=== PATIENT | female | born 1970 | race Caucasian/White ===

== ENCOUNTER → 2020-10-16 | Outpatient (CLI) | payer OTHER ==
[2020-10-16 14:19] VITALS: BP 157/89; PULSE 65; RESP 18; TEMP 98; BMI 41.5
--- NOTE | 2020-10-16 15:31 | P.HPBAR ---
Bariatric H&P - History & Physicial H&P Date: 10/16/20 History & Physicial: Visit/CC: follow up Patient initial contact: Initial weight: Initial weight in pounds: Height: 5 ft 5 in Initial BMI: Last weight: Current weight: 113.217 kg Current weight in pounds: 249.60 Current BMI: 41.5 [place] body weight (based on NIH guidelines): 56.699 kg Excess body weight loss: The patient is a 50 year-old F who presents for Bariatric Assessment. Patient presents today for LAP-BAND follow-up. She is currently hungry and is requesting a fill. Past Medical History Past Medical History: Thyroid Disorder History of Any Multi-Drug Resistant Organisms: None Reported Past Surgical History: Bariatric Surgery, Section Additional Past Surgical History / Comment(s): C SECTION X 4 LAP BAND 2011 Past Anesthesia/Blood Transfusion Reactions: No Reported Reaction Past Psychological History: No Psychological Hx Reported Smoking Status: Never smoker Past Alcohol Use History: None Reported Past Drug Use History: None Reported Surgical - Exam Vital Signs Temp Pulse Resp BP 98 F 65 18 157/89 10/16/20 14:11 10/16/20 14:11 10/16/20 14:11 10/16/20 14:11 - General well developed, well nourished, no distress - Eyes PERRL - ENT normal pinna - Neck no masses - Cardiovascular Rhythm: regular - Abdomen Abdomen: soft, non tender Bariatric Assessment & Plan Plan: A she is LAP-BAND was adjusted. She has 3 mL added to her band. She'll follow- up in 4 weeks Bariatric Checklist Checklist: Plan: Checklist: EGD: 1. Hiatal hernia: 2. H. Pylori: HgbA1c: Vitamin D: Smoking: Primary care physician referral: Dr. Linares Psychiatry clearance: Cardiology clearance: Sleep study: Diet journal: VTE risk score: VTE risk level: Rehab needs at discharge:
== END | disposition home or self-care (01) ==
LOC: BARWHC3 13:11
PROVIDERS: ATTEND Surgery
DX: Z46.51 Encounter for fitting and adjustment of gastric lap band (principal); Z98.84 Bariatric surgery status
CPT/HCPCS: 99212

== ENCOUNTER → 2020-11-13 | Outpatient (CLI) | payer OTHER ==
[2020-11-13 14:47] VITALS: BP 115/74; PULSE 78; RESP 20; TEMP 98.2; BMI 41.4
--- NOTE | 2020-11-14 10:49 | P.HPBAR ---
Bariatric H&P - History & Physicial H&P Date: 11/13/20 History & Physicial: Visit/CC: follow up / lap band adjustment Patient initial contact: Initial weight: Initial weight in pounds: Height: 5 ft 5 in Initial BMI: Last weight: Current weight: 112.945 kg Current weight in pounds: 249.00 Current BMI: 41.4 [place] body weight (based on NIH guidelines): 56.699 kg Excess body weight loss: The patient is a 50 year-old F who presents for Bariatric Assessment. Patient presents today for LAP-BAND adjustment. She is requesting a fill. Past Medical History Past Medical History: Thyroid Disorder History of Any Multi-Drug Resistant Organisms: None Reported Past Surgical History: Bariatric Surgery, Section Additional Past Surgical History / Comment(s): C SECTION X 4 LAP BAND 2012 Past Anesthesia/Blood Transfusion Reactions: No Reported Reaction Past Psychological History: No Psychological Hx Reported Smoking Status: Never smoker Past Alcohol Use History: None Reported Past Drug Use History: None Reported Surgical - Exam Vital Signs Temp Pulse Resp BP 98.2 F 78 20 115/74 11/13/20 14:37 11/13/20 14:37 11/13/20 14:37 11/13/20 14:37 - General well developed, well nourished, no distress - Eyes PERRL - ENT normal pinna - Neck no masses - Respiratory normal expansion - Cardiovascular Rhythm: regular - Abdomen Abdomen: soft, non tender Bariatric Assessment & Plan Plan: Patient's lap band adjusted. She had 1 mL added to the band. She currently has 4 mL in the band. She'll follow-up in 4 weeks. Bariatric Checklist Checklist: Plan: Checklist: EGD: 1. Hiatal hernia: 2. H. Pylori: HgbA1c: Vitamin D: Smoking: Primary care physician referral: Dr. Linares Psychiatry clearance: Cardiology clearance: Sleep study: Diet journal: VTE risk score: VTE risk level: Rehab needs at discharge:
== END | disposition home or self-care (01) ==
LOC: BARWHC3 13:51
PROVIDERS: ATTEND Surgery
DX: Z46.51 Encounter for fitting and adjustment of gastric lap band (principal); Z98.84 Bariatric surgery status
CPT/HCPCS: 99212

== ENCOUNTER → 2020-12-18 | Outpatient (CLI) | payer OTHER ==
[2020-12-18 13:36] VITALS: BP 132/82; PULSE 78; RESP 16; TEMP 98.1; BMI 41.2
--- NOTE | 2021-01-01 11:39 | P.HPBAR ---
Bariatric H&P - History & Physicial H&P Date: 12/18/20 History & Physicial: Visit/CC: band f/u Patient initial contact: Initial weight: 113.115 kg Initial weight in pounds: 249.38 Height: 5 ft 5 in Initial BMI: 41.5 Last weight: Current weight: 112.491 kg Current weight in pounds: 248.00 Current BMI: 41.2 [place] body weight (based on NIH guidelines): 56.699 kg Excess body weight loss: 1.1% The patient is a 50 year-old F who presents for Bariatric Assessment. Patient presents today for lab band follow up. She is requesting a fill of her band. She currently feels hungry. Past Medical History Past Medical History: Thyroid Disorder History of Any Multi-Drug Resistant Organisms: None Reported Past Surgical History: Bariatric Surgery, Section Additional Past Surgical History / Comment(s): C SECTION X 4 LAP BAND 2011 Past Anesthesia/Blood Transfusion Reactions: No Reported Reaction Smoking Status: Never smoker Surgical - Exam Vital Signs Temp Pulse Resp BP 98.1 F 78 16 132/82 12/18/20 13:33 12/18/20 13:33 12/18/20 13:33 12/18/20 13:33 - General well developed, well nourished, no distress - Eyes PERRL - ENT normal pinna - Neck no masses - Respiratory normal expansion - Cardiovascular Rhythm: regular - Abdomen Abdomen: soft, non tender Bariatric Assessment & Plan Plan: Patient's lap band adjusted. She had 1 mL added to the band. She currently has 5 mL in the band. She'll follow-up in 4 weeks. Bariatric Checklist Checklist: Plan: Checklist: EGD: 1. Hiatal hernia: 2. H. Pylori: HgbA1c: Vitamin D: Smoking: Primary care physician referral: Dr. Linares Psychiatry clearance: Cardiology clearance: Sleep study: Diet journal: VTE risk score: VTE risk level: Rehab needs at discharge:
== END | disposition home or self-care (01) ==
LOC: BARWHC3 13:25
PROVIDERS: ATTEND Surgery
DX: Z46.51 Encounter for fitting and adjustment of gastric lap band (principal)
CPT/HCPCS: 99212

== ENCOUNTER → 2021-01-15 | Outpatient (CLI) | payer OTHER ==
[2021-01-15 14:33] VITALS: BP 139/76; PULSE 69; RESP 18; TEMP 98.6; BMI 41.5
--- NOTE | 2021-01-22 15:42 | P.HPBAR ---
Bariatric H&P - History & Physicial H&P Date: 01/15/21 History & Physicial: Visit/CC: follow up / lap band Patient initial contact: Initial weight: 113.115 kg Initial weight in pounds: 249.38 Height: 5 ft 5 in Initial BMI: 41.5 Last weight: Current weight: 113.398 kg Current weight in pounds: 250.00 Current BMI: 41.5 [place] body weight (based on NIH guidelines): 56.699 kg Excess body weight loss: The patient is a 50 year-old F who presents for Bariatric Assessment. Patient resents today for LAP-BAND adjustment and she is requesting a fill. Past Medical History Past Medical History: Thyroid Disorder History of Any Multi-Drug Resistant Organisms: None Reported Past Surgical History: Bariatric Surgery, Section Additional Past Surgical History / Comment(s): C SECTION X 4 LAP BAND 2011 Past Anesthesia/Blood Transfusion Reactions: No Reported Reaction Past Psychological History: No Psychological Hx Reported Smoking Status: Never smoker Past Alcohol Use History: None Reported Past Drug Use History: None Reported Surgical - Exam Vital Signs Temp Pulse Resp BP 98.6 F 69 18 139/76 01/15/21 14:29 01/15/21 14:29 01/15/21 14:29 01/15/21 14:29 - General well developed, well nourished, no distress - Eyes PERRL - ENT normal pinna - Neck no masses - Respiratory normal expansion - Cardiovascular Rhythm: regular - Abdomen Abdomen: soft, non tender Bariatric Assessment & Plan Plan: Patient LAP-BAND was adjusted she had 1 mL added to the band. She'll follow-up in 4 weeks. Bariatric Checklist Checklist: Plan: Checklist: EGD: 1. Hiatal hernia: 2. H. Pylori: HgbA1c: Vitamin D: Smoking: Primary care physician referral: Dr. Linares Psychiatry clearance: Cardiology clearance: Sleep study: Diet journal: VTE risk score: VTE risk level: Rehab needs at discharge:
== END ==
LOC: BARWHC3 13:02
PROVIDERS: ATTEND Surgery
DX: Z98.84 Bariatric surgery status (principal); Z46.51 Encounter for fitting and adjustment of gastric lap band; E03.9 Hypothyroidism, unspecified
CPT/HCPCS: 99212

== ENCOUNTER → 2021-02-19 | Outpatient (CLI) | payer OTHER ==
[2021-02-19 13:06] VITALS: BP 142/85; PULSE 75; RESP 18; TEMP 97.6; BMI 40.8
--- NOTE | 2021-02-19 13:40 | P.HPBAR ---
Bariatric H&P - History & Physicial H&P Date: 02/19/21 History & Physicial: Visit/CC: lap band follow up Patient initial contact: Initial weight: 113.115 kg Initial weight in pounds: 249.38 Height: 5 ft 5 in Initial BMI: 41.5 Last weight: Current weight: 111.402 kg Current weight in pounds: 245.60 Current BMI: 40.8 [place] body weight (based on NIH guidelines): 56.699 kg Excess body weight loss: 3.0% The patient is a 50 year-old F who presents for Bariatric Assessment. She presents today for lab band follow up. She fill of her LAP-BAND. Requesting a fill of her LAP-BAND Past Medical History Past Medical History: Thyroid Disorder History of Any Multi-Drug Resistant Organisms: None Reported Past Surgical History: Bariatric Surgery, Section Additional Past Surgical History / Comment(s): C SECTION X 4 LAP BAND 2011 Past Anesthesia/Blood Transfusion Reactions: No Reported Reaction Past Psychological History: No Psychological Hx Reported Smoking Status: Never smoker Past Alcohol Use History: None Reported Past Drug Use History: None Reported Surgical - Exam Vital Signs Temp Pulse Resp BP 97.6 F 75 18 142/85 02/19/21 13:03 02/19/21 13:03 02/19/21 13:03 02/19/21 13:03 - General well developed, well nourished, no distress - Eyes PERRL - ENT normal pinna - Neck no masses - Respiratory normal expansion - Cardiovascular Rhythm: regular - Abdomen Abdomen: soft, non tender Bariatric Assessment & Plan Plan: Patient's lap band was adjusted. She had 0.5 mL added to her band. She currently has 6.5 mL in the band. Bariatric Checklist Checklist: Plan: Checklist: EGD: 1. Hiatal hernia: 2. H. Pylori: HgbA1c: Vitamin D: Smoking: Primary care physician referral: Dr. Linares Psychiatry clearance: Cardiology clearance: Sleep study: Diet journal: VTE risk score: VTE risk level: Rehab needs at discharge:
== END ==
LOC: BARWHC3 12:41
PROVIDERS: ATTEND Surgery
DX: E66.01 Morbid (severe) obesity due to excess calories (principal); Z68.41 Body mass index [BMI] 40.0-44.9, adult; Z98.84 Bariatric surgery status; Z46.51 Encounter for fitting and adjustment of gastric lap band
CPT/HCPCS: 99212

== ENCOUNTER → 2021-03-26 | Outpatient (CLI) | payer OTHER ==
[2021-03-26 14:19] VITALS: BP 135/85; PULSE 71; RESP 18; TEMP 98.6; BMI 40.1
--- NOTE | 2021-03-26 15:39 | P.HPBAR ---
Bariatric H&P - History & Physicial H&P Date: 03/26/21 History & Physicial: Visit/CC: lap band follow up Patient initial contact: Initial weight: 113.115 kg Initial weight in pounds: 249.38 Height: 5 ft 5 in Initial BMI: 41.5 Last weight: Current weight: 109.316 kg Current weight in pounds: 241.00 Current BMI: 40.1 [place] body weight (based on NIH guidelines): 56.699 kg Excess body weight loss: 6.7% The patient is a 51 year-old F who presents for Bariatric Assessment. Patient presents today for laparoscopic band fill. She is requesting a fill. She currently feels hungry. Past Medical History Past Medical History: Thyroid Disorder History of Any Multi-Drug Resistant Organisms: None Reported Past Surgical History: Bariatric Surgery, Section Additional Past Surgical History / Comment(s): C SECTION X 4 LAP BAND 2011 Past Anesthesia/Blood Transfusion Reactions: No Reported Reaction Past Psychological History: No Psychological Hx Reported Smoking Status: Never smoker Past Alcohol Use History: None Reported Past Drug Use History: None Reported Surgical - Exam Vital Signs Temp Pulse Resp BP 98.6 F 71 18 135/85 03/26/21 14:15 03/26/21 14:15 03/26/21 14:15 03/26/21 14:15 - General well developed, well nourished, no distress - Eyes PERRL - ENT normal pinna - Neck no masses - Respiratory normal expansion - Abdomen Abdomen: soft, non tender Bariatric Assessment & Plan Plan: Patient's LAP-BAND was just. She had 0.5 mL added to the band. She will follow-up in one month. Bariatric Checklist Checklist: Plan: Checklist: EGD: 1. Hiatal hernia: 2. H. Pylori: HgbA1c: Vitamin D: Smoking: Primary care physician referral: Dr. Linares Psychiatry clearance: Cardiology clearance: Sleep study: Diet journal: VTE risk score: VTE risk level: Rehab needs at discharge:
== END ==
LOC: BARWHC3 13:57
PROVIDERS: ATTEND Surgery
DX: Z46.51 Encounter for fitting and adjustment of gastric lap band (principal); Z98.84 Bariatric surgery status
CPT/HCPCS: 99212

== ENCOUNTER → 2021-05-14 | Outpatient (CLI) | payer OTHER ==
[2021-05-14 13:09] VITALS: BP 126/85; PULSE 64; RESP 18; TEMP 97.9; BMI 38.6
--- NOTE | 2021-05-14 16:32 | P.HPBAR ---
Bariatric H&P - History & Physicial H&P Date: 05/14/21 History & Physicial: Visit/CC: follow up / lap band Patient initial contact: Initial weight: 113.115 kg Initial weight in pounds: 249.38 Height: 5 ft 5 in Initial BMI: 41.5 Last weight: Current weight: 105.233 kg Current weight in pounds: 232.00 Current BMI: 38.6 [place] body weight (based on NIH guidelines): 56.699 kg Excess body weight loss: 13.9% The patient is a 51 year-old F who presents for Bariatric Assessment. She prese nts today for her LAP-BAND follow-up. She's had excellent weight loss. Patient states that she is in a good zone. She has complaints of some minimal GERD. Past Medical History Past Medical History: Thyroid Disorder History of Any Multi-Drug Resistant Organisms: None Reported Past Surgical History: Bariatric Surgery, Section Additional Past Surgical History / Comment(s): C SECTION X 4 LAP BAND 2011 Past Anesthesia/Blood Transfusion Reactions: No Reported Reaction Past Psychological History: No Psychological Hx Reported Smoking Status: Never smoker Past Alcohol Use History: None Reported Past Drug Use History: None Reported Surgical - Exam Vital Signs Temp Pulse Resp BP 97.9 F 64 18 126/85 05/14/21 13:04 05/14/21 13:04 05/14/21 13:04 05/14/21 13:04 - General well developed, well nourished, no distress - Eyes PERRL - ENT normal pinna - Neck no masses - Respiratory normal expansion - Cardiovascular Rhythm: regular - Abdomen Abdomen: soft, non tender Bariatric Assessment & Plan Plan: Patient's lap band was not adjusted. She will be observed. She'll follow-up in 4 weeks. Her GERD is minimal and will be observed. Bariatric Checklist Checklist: Plan: Checklist: EGD: 1. Hiatal hernia: 2. H. Pylori: HgbA1c: Vitamin D: Smoking: Primary care physician referral: Dr. Linares Psychiatry clearance: Cardiology clearance: Sleep study: Diet journal: VTE risk score: VTE risk level: Rehab needs at discharge:
== END ==
LOC: BARWHC3 12:44
PROVIDERS: ATTEND Surgery
DX: Z09 Encounter for follow-up examination after completed treatment for conditions other than malignant neoplasm (principal); K21.9 Gastro-esophageal reflux disease without esophagitis; Z98.84 Bariatric surgery status
CPT/HCPCS: 99211

== ENCOUNTER → 2021-06-18 | Outpatient (CLI) | payer OTHER ==
[2021-06-18 13:17] VITALS: BP 134/85; PULSE 84; TEMP 97.4; BMI 37.9
--- NOTE | 2021-06-18 15:42 | P.HPBAR ---
Bariatric H&P - History & Physicial H&P Date: 06/18/21 History & Physicial: Visit/CC: lap band follow up Patient initial contact: Initial weight: 113.115 kg Initial weight in pounds: 249.38 Height: 5 ft 5 in Initial BMI: 41.5 Last weight: Current weight: 103.419 kg Current weight in pounds: 228.00 Current BMI: 37.9 [place] body weight (based on NIH guidelines): 56.699 kg Excess body weight loss: 17.1% The patient is a 51 year-old F who presents for Bariatric Assessment. Patient rents today for LAP-BAND adjustment. She's had some complaints of GERD. Past Medical History Past Medical History: Thyroid Disorder History of Any Multi-Drug Resistant Organisms: None Reported Past Surgical History: Bariatric Surgery, Section Additional Past Surgical History / Comment(s): C SECTION X 4 LAP BAND 2011 Past Anesthesia/Blood Transfusion Reactions: No Reported Reaction Past Psychological History: No Psychological Hx Reported Smoking Status: Never smoker Past Alcohol Use History: None Reported Past Drug Use History: None Reported Surgical - Exam Vital Signs Temp Pulse BP 97.4 F L 84 134/85 06/18/21 13:16 06/18/21 13:16 06/18/21 13:16 - General well developed, well nourished, no distress - Eyes PERRL - ENT normal pinna - Neck no masses - Respiratory normal expansion - Cardiovascular Rhythm: regular - Abdomen Abdomen: soft, non tender Bariatric Assessment & Plan Plan: Patient's lap was just. She had 1 mL removed from the band. She will follow-up in 4 weeks. Bariatric Checklist Checklist: Plan: Checklist: EGD: 1. Hiatal hernia: 2. H. Pylori: HgbA1c: Vitamin D: Smoking: Primary care physician referral: Dr. Linares Psychiatry clearance: Cardiology clearance: Sleep study: Diet journal: VTE risk score: VTE risk level: Rehab needs at discharge:
== END ==
LOC: BARWHC3 12:42
PROVIDERS: ATTEND Surgery
DX: Z46.51 Encounter for fitting and adjustment of gastric lap band (principal); K21.9 Gastro-esophageal reflux disease without esophagitis
CPT/HCPCS: 99212

== ENCOUNTER 2021-06-21 10:17 | Observation (INO) | payer OTHER ==
--- NOTE | 2021-06-21 10:48 | ED ---
Chest Pain HPI - General Source: patient, RN notes reviewed Mode of arrival: wheelchair Limitations: no limitations <Howard Ochoa - Last Filed: 06/21/21 12:44> <Rowan Radford - Last Filed: 06/22/21 00:09> - General Chief Complaint: Chest Pain Stated Complaint: chest pain Time Seen by Provider: 06/21/21 10:36 - History of Present Illness Initial Comments: This a 51-year-old female presents emergency Department with chief complaint of chest pain. Patient states she had very intense episode approximately hour prior arrival. She states this started resolve but returned again. Currently she is asymptomatic. Patient states she felt very tired, weak and does not feel well during this event. Patient states that she's been having some issues in which she is scheduled for upper or lower scope. Patient denies any rectal bleeding, hematemesis no, nausea vomiting currently. No headache. (Howard Ochoa) - Related Data Home Medications Medication Instructions Recorded Confirmed FLUoxetine HCL [PROzac] 40 mg PO DAILY 10/16/20 06/21/21 Albuterol Sulfate [Ventolin HFA] 1 - 2 puff INHALATION RT-Q6H PRN 06/21/21 06/21/21 Levothyroxine Sodium [Synthroid] 100 mcg PO DAILY 06/21/21 06/21/21 Liothyronine Sodium [Cytomel] 5 mcg PO DAILY 06/21/21 06/21/21 Oxybutynin Chloride [Oxybutynin 10 mg PO DAILY 06/21/21 06/21/21 Chloride ER] Allergies Allergy/AdvReac Type Severity Reaction Status Date / Time No Known Allergies Allergy Verified 06/21/21 12:06 Review of Systems ROS Other: All systems not noted in ROS Statement are negative. <Howard Ochoa - Last Filed: 06/21/21 12:44> ROS Other: All systems not noted in ROS Statement are negative. <Rowan Radford - Last Filed: 06/22/21 00:09> ROS Statement: Those systems with pertinent positive or pertinent negative responses have been documented in the HPI. EKG Findings - EKG Comments: EKG Findings:: EKG performed at 10:33 sinus bradycardia rate of 58 [place] 132 QRS 82 QT/QTC 440/431 <Howard Ochoa - Last Filed: 06/21/21 12:44> Past Medical History Past Medical History: Thyroid Disorder History of Any Multi-Drug Resistant Organisms: None Reported Past Surgical History: Bariatric Surgery, Section Additional Past Surgical History / Comment(s): C SECTION X 4 LAP BAND 2012 Past Anesthesia/Blood Transfusion Reactions: No Reported Reaction Past Psychological History: No Psychological Hx Reported Smoking Status: Never smoker Past Alcohol Use History: Occasional Past Drug Use History: None Reported <Howard Ochoa - Last Filed: 06/21/21 12:44> General Exam Limitations: no limitations General appearance: alert, in no apparent distress Head exam: Present: atraumatic, normocephalic, normal inspection Eye exam: Present: normal appearance, PERRL, EOMI. Absent: scleral icterus, conjunctival injection, periorbital swelling ENT exam: Present: normal exam, normal oropharynx, mucous membranes moist Neck exam: Present: normal inspection. Absent: tenderness, meningismus, lymphadenopathy Respiratory exam: Present: normal lung sounds bilaterally. Absent: respiratory distress, wheezes, rales, rhonchi, stridor Cardiovascular Exam: Present: regular rate, normal rhythm, normal heart sounds. Absent: systolic murmur, diastolic murmur, rubs, gallop, clicks GI/Abdominal exam: Present: soft, normal bowel sounds. Absent: distended, tenderness, guarding, rebound, rigid Neurological exam: Present: alert Skin exam: Present: warm, dry, intact, normal color. Absent: rash <Howard Ochoa - Last Filed: 06/21/21 12:44> Course Vital Signs 06/21/21 06/21/21 06/21/21 10:20 11:38 17:43 Temperature 97.7 F Pulse Rate 61 58 L 60 Respiratory 18 16 18 Rate Blood Pressure 123/84 146/80 144/96 O2 Sat by Pulse 98 98 97 Oximetry 06/21/21 22:53 Temperature Pulse Rate 72 Respiratory 18 Rate Blood Pressure 131/75 O2 Sat by Pulse 98 Oximetry Chest Pain MDM <Howard Ochoa - Last Filed: 06/21/21 12:44> <Rowan Radford - Last Filed: 06/22/21 00:09> - MDM 51-year-old female presents emergency Department with chest pain. Initial workup is negative though symptoms started just prior arrival. I do recommend patient be admitted for further work duration. Patient refused aspirin as she is scheduled for EGD. Patient refuses admission she states she has no pain. I did have a long conversation regarding her symptoms concern for cardiac and the risk of leaving. Patient exited the risk and states that she'll just return if symptoms come back. (Howard Ochoa) I was available for consultation in the emergency department. The history and physical exam were done by the midlevel provider. I was consulted for this patients care. I reviewed the case with the midlevel provider and based on their presentation of the patient, I agree with the assessment, medical decision making and plan of care as documented. Patient originally planned on leaving however changed her mind and agreed to stay - Dr. Quan is admitting physician Chart was dictated using [employer] dictation software. Attempts were made to correct any dictation errors however some typographical errors may persist. Patient was seen during a national state of emergency due to the Covid-19 pandemic. (Rowan Radford) Disposition Is patient prescribed a controlled substance at d/c from ED?: No Time of Disposition: 12:45 <Howard Ochoa - Last Filed: 06/21/21 12:44> <Rowan Radford - Last Filed: 06/22/21 00:09> Clinical Impression: Chest pain Disposition: ADMITTED IP TO THIS HOSP Condition: Fair
--- NOTE | 2021-06-21 11:08 | XR ---
EXAMINATION TYPE: XR chest 2V DATE OF EXAM: 06/21/2021 COMPARISON: NONE TECHNIQUE: PA and lateral views submitted. HISTORY: Chest pain FINDINGS: The lungs are clear and there is no pneumothorax, pleural effusion, or focal pneumonia. Heart size normal with no overt failure. Arthropathy of the shoulders. Hypertrophic and degenerative changes spi ne. A catheter overlying the upper abdomen. IMPRESSION: 1. No acute process.
[2021-06-21 11:48] LABS: Basophils % (A) 1 %; Eosinophils # (A) 0.1 k/uL (0-0.7); Eosinophils % (A) 2 %; HCT 42.6 % (34.0-46.0); Lymphocytes # (A) 1.1 k/uL (1.0-4.8); Lymphocytes % (A) 18 %; MCH 30.8 pg (25.0-35.0); MCHC 32.9 g/dL (31.0-37.0); MCV 93.8 fL (80.0-100.0); Mean Platelet Volume 9.6; Monocytes # (A) 0.5 k/uL (0-1.0); Monocytes % (A) 8 %; Neutrophils # (A) 4.4 k/uL (1.3-7.7); Neutrophils % (A) 71 %; Platelet Count 243 k/uL (150-450); RBC 4.54 m/uL (3.80-5.40); RDW 13.8 % (11.5-15.5); WBC 6.2 k/uL (3.8-10.6)
[2021-06-21 11:59] LABS: ALT 24 U/L (4-34); AST 32 U/L (14-36); African American GFR (CKD) >90 (>60 ml/min/1.73 sqM); Albumin 4.4 g/dL (3.5-5.0); Alkaline Phosphatase 75 U/L (38-126); Anion Gap 9 mmol/L; Blood Urea Nitrogen 10 mg/dL (7-17); Calcium 9.5 mg/dL (8.4-10.2); Carbon Dioxide 28 mmol/L (22-30); Chloride 99 mmol/L (98-107); Glucose 92 mg/dL (74-99); Lipase 84 U/L (23-300); Magnesium 1.9 mg/dL (1.6-2.3); Non-African American GFR(CKD) >90 (>60 ml/min/1.73 sqM); Potassium 4.6 mmol/L (3.5-5.1); Sodium 136 mmol/L (137-145); Total Bilirubin 0.6 mg/dL (0.2-1.3); Total Protein 7.2 g/dL (6.3-8.2)
[2021-06-21 12:11] LABS: INR 0.9 (<1.2); Partial Thromboplastin Time 24.2 sec (22.0-30.0); Prothrombin Time 9.9 sec (9.0-12.0)
[2021-06-21] MEDS ORDERED: NITROGLYCERIN SL TABS 0.4 MG TAB SUBLINGUAL PRN (12:49)
[2021-06-21] MEDS ORDERED: ALBUTEROL NEBULIZED 2.5 MG/3 ML INHALATION PRN (16:48)
--- NOTE | 2021-06-21 16:50 | P.HPIM ---
History of Present Illness H&P Date: 06/21/21 Chief Complaint: Chest pain This is a 51-year-old pleasant female, patient of Dr. Queen. She is otherwise healthy, except for hypothyroidism and LAP-BAND, in 2011 however comes in with significant sudden onset chest discomfort, midsternal, very intense, approximately 1 hour prior to admission. Patient has no similar episodes the past, and no known history of CAD. However there is significant family history of CAD, patient's concern. Patient felt tired and weak, does not feel well, there is no diaphoresis, no fever no chills no cough. No sick contacts, patient completed 2 doses of cold vaccination, from December 2020. Apparently she also has gallstones, for which no plans for gallbladder to be taken out, but she is to undergo an EGD, and colonoscopy by Dr. cisneros, as she does have an abnormal CAT scan that shows widening of the esophagus, and narrowing of the GE junction. This is going to be done this coming June 25. Patient has sore throat, chest pressure, difficulty breathing, patient incidentally has covid infection November 2020 In the mentioned, patient's chest pain free, troponins are negative, 1, double basic count of 6.2, INR of 0.9. Lipase 84 EKG shows sinus bradycardia, LVH, heart rate 58, no acute ST-T wave changes chest x-ray, no acute process. Past hypertrophic degenerative changes of the spine, patient's admitted for 23 hour observe, to have echocardiogram, serial troponins, consult with cardiology. Lipid panel; nitro when necessary, exam today once in the emergency room, clinically she does not have any acute cholecystitis-like symptoms, negative for Guerrier sign Review of Systems Constitutional: Reports as per HPI Ears, nose, mouth and throat: Reports as per HPI Cardiovascular: Reports as per HPI, Reports chest pain, Denies claudication, Denies dyspnea on exertion, Denies edema, Denies high blood pressure, Denies irregular heart beat, Denies orthopnea Gastrointestinal: Reports abdominal pain, Reports loss of appetite, Denies as per HPI, Denies coffee ground emesis, Denies constipation, Denies excessive gas, Denies heartburn, Denies hematochezia, Denies nausea, Denies vomiting Genitourinary: Reports as per HPI, Reports urge incontinence, Denies abnormal vaginal bleeding, Denies dysuria, Denies hematuria Menstruation: Reports as per HPI, Denies amenorrhea, Denies amenorrhea on BC, Denies currently menstrual, Denies cycle < 21 days, Denies cycle > 35 days, Denies cycle variable, Denies menses 1-7 days, Denies menses 8 or > days, Denies menses variable, Denies period heavy, Denies period light, Denies period normal, Denies period spotting, Denies post hysterectomy, Denies postmenopausal, Denies premenarcheal Musculoskeletal: Reports as per HPI, Denies arm numbness/tingling, Denies atrophy, Denies fractures, Denies frequent falls, Denies gait dysfunction, Denies hot joints, Denies leg numbness/tingling, Denies limitation of motion, Denies loss of height, Denies low back pain, Denies morning stiffness, Denies muscle cramps, Denies muscle weakness, Denies myalgias, Denies neck pain, Denies neck stiffness, Denies prior amputations, Denies redness of joints, Denies shooting arm pain, Denies shooting leg pain Integumentary: Reports as per HPI, Denies acne, Denies boils, Denies brittle nails, Denies change in hair/nails, Denies color changes, Denies darkening of skin, Denies depigmentation, Denies dryness, Denies foot/leg ulcers, Denies growths, Denies hirsutism, Denies lesions, Denies onychomycosis, Denies pruritus, Denies rash, Denies sores, Denies striae, Denies unusual bruising, Denies wounds Neurological: Reports as per HPI, Reports weakness, Denies aphasia, Denies ataxia, Denies balance difficulties, Denies burning pain, Denies change in mentation, Denies change in smell/taste, Denies change in speech, Denies confusion, Denies convulsions, Denies double vision, Denies gait dysfunction, Denies head injury, Denies headaches, Denies hearing difficulties, Denies lack of coordination, Denies loss of vision, Denies memory loss, Denies migraines, Denies motor disturbance, Denies numbness, Denies paralysis, Denies paresthesias, Denies seizures, Denies sensory deficit, Denies spasticity, Denies syncope, Denies tic, Denies tingling, Denies transient paralysis, Denies tremors, Denies vertigo, Denies visual changes Psychiatric: Reports as per HPI, Denies anhedonia, Denies anxiety, Denies anxiety attacks, Denies change in appetite, Denies change in libido, Denies change in sleep habits, Denies confusion, Denies depression, Denies difficulty concentrating, Denies disorientation, Denies hallucinations, Denies hopelessness, Denies hypersomnia, Denies insomnia, Denies irritability, Denies memory loss, Denies mood swings, Denies paranoia, Denies sadness/tearfulness, Denies sleep disturbances, Denies suicidal ideation Endocrine: Reports as per HPI, Reports fatigue Hematologic/Lymphatic: Reports as per HPI Allergic/Immunologic: Reports as per HPI, Denies allergic rhinitis, Denies anaphylaxis, Denies angioedema, Denies gluten intolerance, Denies persistent infections, Denies seasonal allergies, Denies urticaria, Denies wheezing Past Medical History Past Medical History: Thyroid Disorder Additional Past Medical History / Comment(s): Covid November 2020 History of Any Multi-Drug Resistant Organisms: None Reported Past Surgical History: Bariatric Surgery, Section Additional Past Surgical History / Comment(s): C SECTION X 4 LAP BAND 2011 Past Anesthesia/Blood Transfusion Reactions: No Reported Reaction Past Psychological History: No Psychological Hx Reported Smoking Status: Never smoker Past Alcohol Use History: Occasional Past Drug Use History: None Reported - Past Family History Father Family Medical History: Cancer (Prostate and lung) Mother Family Medical History: Coronary Artery Disease (CAD) Brother(s) Family Medical History: Diabetes Mellitus Sister(s) Family Medical History: Diabetes Mellitus Daughter(s) History Unknown: Yes (JRA) Medications and Allergies Home Medications Medication Instructions Recorded Confirmed Type FLUoxetine HCL [PROzac] 40 mg PO DAILY 10/16/20 06/21/21 History Albuterol Sulfate [Ventolin HFA] 1 - 2 puff INHALATION RT-Q6H PRN 06/21/21 06/21/21 History Levothyroxine Sodium [Synthroid] 100 mcg PO DAILY 06/21/21 06/21/21 History Liothyronine Sodium [Cytomel] 5 mcg PO DAILY 06/21/21 06/21/21 History Oxybutynin Chloride [Oxybutynin 10 mg PO DAILY 06/21/21 06/21/21 History Chloride ER] Allergies Allergy/AdvReac Type Severity Reaction Status Date / Time No Known Allergies Allergy Verified 06/21/21 12:06 Physical Exam Vitals: Vital Signs Temp Pulse Resp BP Pulse Ox 06/21/21 11:38 58 L 16 146/80 98 06/21/21 10:20 97.7 F 61 18 123/84 98 Intake and Output 06/21/21 06/21/21 06/21/21 06:59 14:59 22:59 Other: Weight 102.058 kg - Constitutional General appearance: cooperative, no acute distress, obese - EENT Eyes: EOMI, PERRLA, dentition normal ENT: NA/AT - Neck Thyroid: bilateral: normal size, negative: enlarged - Respiratory Respiratory: bilateral: CTA, negative: diminished, dullness, rales - Cardiovascular Rhythm: regular Heart sounds: normal: S1, S2 Abnormal Heart Sounds: no systolic murmur, no diastolic murmur, no rub, no S3 Gallop, no S4 Gallop, no click, no other - Gastrointestinal General gastrointestinal: normal bowel sounds, soft - Integumentary Integumentary: decreased turgor, normal - Neurologic Neurologic: CNII-XII intact - Musculoskeletal Musculoskeletal: gait normal, strength equal bilaterally - Psychiatric Psychiatric: A&O x's 3, appropriate affect, intact judgment & insight Results CBC & Chem 7: 06/21/21 10:51 06/21/21 10:51 Labs: Abnormal Lab Results - Last 24 Hours (Table) 06/21/21 Range/Units 10:51 Sodium 136 L (137-145) mmol/L Laboratory Results WBC 6.2 k/uL (3.8-10.6) 06/21/21 10:51 RBC 4.54 m/uL (3.80-5.40) 06/21/21 10:51 Hgb 14.0 gm/dL (11.4-16.0) 06/21/21 10:51 Hct 42.6 % (34.0-46.0) 06/21/21 10:51 MCV 93.8 fL (80.0-100.0) 06/21/21 10:51 MCH 30.8 pg (25.0-35.0) 06/21/21 10:51 MCHC 32.9 g/dL (31.0-37.0) 06/21/21 10:51 RDW 13.8 % (11.5-15.5) 06/21/21 10:51 Plt Count 243 k/uL (150-450) 06/21/21 10:51 MPV 9.6 06/21/21 10:51 Neutrophils % 71 % 06/21/21 10:51 Lymphocytes % 18 % 06/21/21 10:51 Monocytes % 8 % 06/21/21 10:51 Eosinophils % 2 % 06/21/21 10:51 Basophils % 1 % 06/21/21 10:51 Neutrophils # 4.4 k/uL (1.3-7.7) 06/21/21 10:51 Lymphocytes # 1.1 k/uL (1.0-4.8) 06/21/21 10:51 Monocytes # 0.5 k/uL (0-1.0) 06/21/21 10:51 Eosinophils # 0.1 k/uL (0-0.7) 06/21/21 10:51 Basophils # 0.0 k/uL (0-0.2) 06/21/21 10:51 PT 9.9 sec (9.0-12.0) 06/21/21 10:51 INR 0.9 (<1.2) 06/21/21 10:51 APTT 24.2 sec (22.0-30.0) 06/21/21 10:51 Sodium 136 mmol/L (137-145) L 06/21/21 10:51 Potassium 4.6 mmol/L (3.5-5.1) 06/21/21 10:51 Chloride 99 mmol/L (98-107) 06/21/21 10:51 Carbon Dioxide 28 mmol/L (22-30) 06/21/21 10:51 Anion Gap 9 mmol/L 06/21/21 10:51 BUN 10 mg/dL (7-17) 06/21/21 10:51 Creatinine 0.63 mg/dL (0.52-1.04) 06/21/21 10:51 Est GFR (CKD-EPI)AfAm >90 (>60 ml/min/1.73 sqM) 06/21/21 10:51 Est GFR (CKD-EPI)NonAf >90 (>60 ml/min/1.73 sqM) 06/21/21 10:51 Glucose 92 mg/dL (74-99) 06/21/21 10:51 Calcium 9.5 mg/dL (8.4-10.2) 06/21/21 10:51 Magnesium 1.9 mg/dL (1.6-2.3) 06/21/21 10:51 Total Bilirubin 0.6 mg/dL (0.2-1.3) 06/21/21 10:51 AST 32 U/L (14-36) 06/21/21 10:51 ALT 24 U/L (4-34) 06/21/21 10:51 Alkaline Phosphatase 75 U/L (38-126) 06/21/21 10:51 Troponin I <0.012 ng/mL (0.000-0.034) 06/21/21 13:40 Total Protein 7.2 g/dL (6.3-8.2) 06/21/21 10:51 Albumin 4.4 g/dL (3.5-5.0) 06/21/21 10:51 Lipase 84 U/L (23-300) 06/21/21 10:51 Thrombosis Risk Factor Assmnt - DVT/VTE Prophylaxis DVT/VTE Prophylaxis: Low risk, early ambulation encouraged Assessment and Plan Plan: 1. Atypical chest pain, with abnormal CT for which workup is certainly present, she does have whitening of the esophagus, narrowing of the GE junction, this could be related to esophageal spasm as well, however with known family history of CAD, patient with this in consultation by cardiology, serial troponins, patient will be kept overnight for monitoring. Echocardiogram, fasting lipid panel, and this modification check for Covid 19 PCR as well. 2. Widening of distal esophagus, and narrowing of the GE junction, for which what workup is going to be completed by Dr. Moe, on June 24, with col onoscopy and EGD, keep appointment as scheduled 3. History of bariatric surgery, with LAP-BAND, this could be related to the widening is noted, bariatric surgeon to follow 3. Multiple gallstones, currently asymptomatic, low-fat diet advocated, negative Guerrier sign, lipase normal 4. History of Covid infection in November 2020 has residual dyspnea on exertion 5. Hypothyroidism, on levothyroxine 100 by grams daily, no changes 7. Dysthymia and Prozac 40 mg daily 8 GE prophylaxis DVT prophylaxis early ambulation, IV Pepcid
[2021-06-22 06:11] VITALS: PULSE 58
[2021-06-22] MEDS ORDERED: LEVOTHYROXINE 100 MCG TAB PO SCH (06:30)
[2021-06-22 07:37] VITALS: BP 113/76; RESP 16; TEMP 98
[2021-06-22] MEDS ORDERED: FLUoxetine HCL 20 MG CAP PO SCH (09:00)
--- NOTE | 2021-06-22 09:46 | ECHOF ---
Referral Reason:chest pain MEASUREMENTS -------- HEIGHT: 165.1 cm WEIGHT: 102.1 kg BP: 146/80 RVIDd: 3.8 cm (< 3.3) IVSd: 1.3 cm (0.6 - 1.1) LVIDd: 4.4 cm (3.9 - 5.3) LVPWd: 1.4 cm (0.6 - 1.1) IVSs: 2.0 cm LVIDs: 2.2 cm LVPWs: 1.7 cm LAESV Index (A-L): 22.22 ml/m Ao Diam: 3.2 cm (2.0 - 3.7) AV Cusp: 1.8 cm (1.5 - 2.6) LA Diam: 4.3 cm (2.7 - 3.8) MV EXCURSION: 21.405 mm (> 18.000) MV EF SLOPE: 105 mm/s (70 - 150) EPSS: 0.5 cm MV E David: 0.67 m/s MV DecT: 242 ms MV A David: 0.47 m/s MV E/A Ratio: 1.42 RAP: 5.00 mmHg RVSP: 27.84 mmHg FINDINGS -------- Sinus rhythm. This was a technically difficult study with suboptimal apical views. The left ventricular size is normal. There is mild concentric left ventricular hypertrophy. Overa ll left ventricular systolic function is normal with, an EF between 55 - 60 %. The diastolic fillin g pattern is normal for the age of the patient 7.66. The right ventricle is mild to moderately enlarged. Normal LA size by volume 22+/-6 ml/m2. The right atrial size is normal. 5.0mg of Lumason was utilized for enhancement of images Interatrial and interventricular septum intact. There is no evidence of aortic regurgitation. There is no evidence of aortic stenosis. There is trace mitral regurgitation. Mild tricuspid regurgitation present. There is no evidence of pulmonary hypertension. The right v entricular systolic pressure, as measured by Doppler, is 27.84mmHg. There is no pulmonic regurgitation present. The aortic root size is normal. IVC Not well visulized. There is no pericardial effusion. CONCLUSIONS -------- 1. The left ventricular size is normal. 2. There is mild concentric left ventricular hypertrophy. 3. Overall left ventricular systolic function is normal with, an EF between 55 - 60 %. 4. The right ventricle is mild to moderately enlarged. 5. There is trace mitral regurgitation. 6. Mild tricuspid regurgitation present. [employer] TECHNICIAN: Kassy Vo RDCS
[2021-06-22 10:52] LABS: Chol/HDL Ratio 4.11; LDL Cholesterol,Calculated 114.8 mg/dL (0.0-131.0); VLDL Calculation 28.2 mg/dL (5.00-40.00)
--- NOTE | 2021-06-22 12:46 | P.CRDCN ---
History of Present Illness History of present illness: HISTORY OF PRESENTING ILLNESS This is a pleasant 51-year-old female past medical history significant for hypothyroidism, gallstones, bariatric surgery, covid 19 in november 2020. She does not follow with a weed controller. We have been asked to see in consultation for chest pain. Patient presents to the emergency department with complaints of chest pain. Yesterday patient had an episode of midsternal/anterior chest pain. Describes it as burning. She states it was very intense at first. Last less than 5 minutes. It was nonradiating, nonexertional. She states she was currently just being in the chair. She states it resolved however came back a few hours liters. Her pain is now resolved. She is to undergo an EGD, and colonoscopy on June [address] Moe as she does have an abnormal CAT scan that shows widening of the esophagus, and narrowing of the GE junction. She denies any associated diaphoresis, nausea, vomiting, lightheadedness, dizziness, syncope, shortness of breath. She denies any history of RI, stroke, diabetes, hypertension, dyslipidemia. She states does have a family history of heart disease. She states her mom did have stents placed in her 60s. She is on sure of her father's specific cardiac history. She is a nonsmoker. Denies alcohol or illicit drug use. DIAGNOSTICS EKG reveals sinus bradycardia, HR 58, Twave inversion in leads III and aVF. No prior EKG to compare Telemetry tracings indicate sinus mechanism HR 50-60s Chest xray no acute cardiopulmonary process. Echocardiogram yesterday revealed an EF 55-60%, RV is mild to moderately enlarged, trace mitral regurgitation, mild tricuspid regurgitation. Laboratory reviewed, CBC unremarkable, sodium 136, potassium 4.6, BUN 10, serum creatinine 0.6, magnesium 1.9, troponin negative 3, COVID-19 PCR negative Current home medications include albuterol PRN, Prozac daily, Synthroid REVIEW OF SYSTEMS At the time of my exam: CONSTITUTIONAL: Denies fever or chills. CARDIOVASCULAR: Positive burning chest pain Denies shortness of breath, orthopnea, PND or palpitations. RESPIRATORY: Denies cough. GASTROINTESTINAL: Denies abdominal pain, diarrhea, constipation, nausea or vomiting. MUSCULOSKELETAL: Denies myalgias. NEUROLOGIC: Denies numbness, tingling, headacbe or weakness. ENDOCRINE: Denies fatigue, weight change, polydipsia or polyurina. GENITOURINARY: Denies burning, hematuria or urgency with micturation. HEMATOLOGIC: Denies history of anemia or bleeding. PHYSICAL EXAMINATION Blood pressure 142/95 heart rate 56 afebrile and maintaining oxygen saturation 98% on room air CONSTITUTIONAL: No apparent distress. HEENT: Head is normocephalic. Pupils are equal, round. Sclerae anicteric. Mucous membranes of the mouth are moist. No JVD. No carotid bruit. CHEST EXAMINATION: Lungs are clear to auscultation. No chest wall tenderness is noted on palpation or with deep breathing. HEART EXAMINATION: Regular rate and rhythm. S1, S2 heard. No murmurs, gallops or rub. ABDOMEN: Soft, nontender. Positive bowel sounds. EXTREMITIES: 2+ peripheral pulses, no lower extremity edema and no calf tenderness. SKIN: no wounds or rashes NEUROLOGIC EXAMINATION: Patient is awake, alert and oriented x3. ASSESSMENT Chest pain, atypical acute coronary syndrome ruled out. Hypothyroidism PLAN An acute coronary event has been ruled out with no EKG evidence of ischemia and negative cardiac enzymes. 2D echocardiogram and doppler study obtained with no acute findings Recommend patient follow up as an outpatient and a stress test can be done as an outpatient. Will send patient home with prescription for sublingual nitroglycerin. Follow up with Dr. Egan in the office Thank you kindly for this consultation. Nurse Practitioner note has been reviewed, I agree with a documented findings and plan of care. Patient was seen and examined. Past Medical History Past Medical History: Thyroid Disorder History of Any Multi-Drug Resistant Organisms: None Reported Past Surgical History: Bariatric Surgery, Section Additional Past Surgical History / Comment(s): C SECTION X 4 LAP BAND 2012 Past Anesthesia/Blood Transfusion Reactions: No Reported Reaction Past Psychological History: No Psychological Hx Reported Smoking Status: Never smoker Past Alcohol Use History: Occasional Past Drug Use History: None Reported - Past Family History Father Family Medical History: Cancer (Prostate and lung) Mother Family Medical History: Coronary Artery Disease (CAD) Brother(s) Family Medical History: Diabetes Mellitus Sister(s) Family Medical History: Diabetes Mellitus Daughter(s) History Unknown: Yes (JRA) Medications and Allergies Home Medications Medication Instructions Recorded Confirmed Type FLUoxetine HCL [PROzac] 40 mg PO DAILY 12/14/20 08/19/21 History Albuterol Sulfate [Ventolin HFA] 1 - 2 puff INHALATION RT-Q6H PRN 06/21/21 06/21/21 History Levothyroxine Sodium [Synthroid] 100 mcg PO DAILY 06/21/21 06/21/21 History Liothyronine Sodium [Cytomel] 5 mcg PO DAILY 06/21/21 06/21/21 History Oxybutynin Chloride [Oxybutynin 10 mg PO DAILY 06/21/21 06/21/21 History Chloride ER] Nitroglycerin Sl Tabs [Nitrostat] 0.4 mg SUBLINGUAL Q5M PRN 15 Days 06/22/21 Rx #15 tab Allergies Allergy/AdvReac Type Severity Reaction Status Date / Time No Known Allergies Allergy Verified 06/21/21 12:06 Physical Exam Vitals: Vital Signs Temp Pulse Resp BP Pulse Ox 06/21/21 11:38 58 L 16 146/80 98 06/21/21 10:20 97.7 F 61 18 123/84 98 Intake and Output 06/20/21 06/21/21 06/21/21 22:59 06:59 14:59 Other: Weight 102.058 kg Results 06/21/21 10:51 06/21/21 10:51 Cardiac Enzymes 06/21/21 06/21/21 Range/Units 10:51 10:51 AST 32 (14-36) U/L Troponin I <0.012 (0.000-0.034) ng/mL Coagulation 06/21/21 Range/Units 10:51 PT 9.9 (9.0-12.0) sec APTT 24.2 (22.0-30.0) sec CBC 06/21/21 Range/Units 10:51 WBC 6.2 (3.8-10.6) k/uL RBC 4.54 (3.80-5.40) m/uL Hgb 14.0 (11.4-16.0) gm/dL Hct 42.6 (34.0-46.0) % Plt Count 243 (150-450) k/uL Comprehensive Metabolic Panel 06/21/21 Range/Units 10:51 Sodium 136 L (137-145) mmol/L Potassium 4.6 (3.5-5.1) mmol/L Chloride 99 (98-107) mmol/L Carbon Dioxide 28 (22-30) mmol/L BUN 10 (7-17) mg/dL Creatinine 0.63 (0.52-1.04) mg/dL Glucose 92 (74-99) mg/dL Calcium 9.5 (8.4-10.2) mg/dL AST 32 (14-36) U/L ALT 24 (4-34) U/L Alkaline Phosphatase 75 (38-126) U/L Total Protein 7.2 (6.3-8.2) g/dL Albumin 4.4 (3.5-5.0) g/dL Current Medications Generic Name Dose Route Start Last Admin Trade Name Freq PRN Reason Stop Dose Admin Nitroglycerin 0.4 mg 06/21/21 12:49 Nitroglycerin Sl Tabs 0.4 Mg Tab SUBLINGUAL Q5M PRN Chest Pain Intake and Output 06/20/21 06/21/21 06/21/21 22:59 06:59 14:59 Other: Weight 102.058 kg Patient Weight 06/22/21 06:59 Weight 102.058 kg 06/21/21 10:51 06/21/21 10:51
== END 2021-06-22 12:34 | disposition home or self-care (01) ==
LOC: EC 10:17 → 6NMEDSUR 13:07
PROVIDERS: ADMIT Family Medicine; ATTEND Family Medicine
DX: R07.89 Other chest pain (principal); E03.9 Hypothyroidism, unspecified; Z20.822 Contact with and (suspected) exposure to COVID-19; K80.20 Calculus of gallbladder without cholecystitis without obstruction; F34.1 Dysthymic disorder; R06.09 Other forms of dyspnea; R00.1 Bradycardia, unspecified; Z79.899 Other long term (current) drug therapy; Z79.890 Hormone replacement therapy; Z98.84 Bariatric surgery status; Z98.891 History of uterine scar from previous surgery; Z86.16 Personal history of COVID-19; Z83.3 Family history of diabetes mellitus; Z82.49 Family history of ischemic heart disease and other diseases of the circulatory system; Z80.1 Family history of malignant neoplasm of trachea, bronchus and lung; Z80.42 Family history of malignant neoplasm of prostate
CPT/HCPCS: 99285; 36415; 93005; 80061; 80053; 83690; 83735; 84484; 85025; 85610; 85730; 87635; 71046; G0378 ×2; C8929; Q9950; 93306

== ENCOUNTER 2021-06-25 10:28 | Day surgery (SDC) | payer OTHER ==
[2021-06-25 10:54] VITALS: TEMP 98.3
[2021-06-25] MEDS ORDERED: LIDOCAINE 1% (10MG/ML) FOR IV START INTRADERMA ONE (11:00)
[2021-06-25] MEDS ORDERED: LACTATED RINGERS 1,000 ML IV ONE (11:02)
[2021-06-25] MEDS ORDERED: LIDOCAINE 1% INJ 10MG/ML (20 ML MDV) ONE (11:55)
[2021-06-25] MEDS ORDERED: PROPOFOL 10 MG/ML 20 ML VIAL IV ONE (11:55)
--- NOTE | 2021-06-25 11:58 | P.GSHP ---
History of Present Illness H&P Date: 06/25/21 Chief Complaint: GERD, screening colonoscopy 51-year-old female sessile complaints of GERD and epigastric pain. She presents today for EGD and screening colonoscopy. Past Medical History Past Medical History: Thyroid Disorder Additional Past Medical History / Comment(s): Covid November 2020 History of Any Multi-Drug Resistant Organisms: None Reported Past Surgical History: Bariatric Surgery, Section Additional Past Surgical History / Comment(s): C SECTION X 4 LAP BAND 2011 Past Anesthesia/Blood Transfusion Reactions: No Reported Reaction Past Psychological History: No Psychological Hx Reported Smoking Status: Never smoker Past Alcohol Use History: Occasional Past Drug Use History: None Reported - Past Family History Father Family Medical History: Cancer (Prostate and lung) Mother Family Medical History: Coronary Artery Disease (CAD) Brother(s) Family Medical History: Diabetes Mellitus Sister(s) Family Medical History: Diabetes Mellitus Daughter(s) History Unknown: Yes (JRA) Medications and Allergies Home Medications Medication Instructions Recorded Confirmed Type FLUoxetine HCL [PROzac] 40 mg PO DAILY 10/16/20 06/25/21 History Albuterol Sulfate [Ventolin HFA] 1 - 2 puff INHALATION RT-Q6H PRN 06/21/21 06/25/21 History Levothyroxine Sodium [Synthroid] 100 mcg PO DAILY 06/21/21 06/25/21 History Liothyronine Sodium [Cytomel] 5 mcg PO DAILY 06/21/21 06/25/21 History Oxybutynin Chloride [Oxybutynin 10 mg PO DAILY 06/21/21 06/25/21 History Chloride ER] Nitroglycerin Sl Tabs [Nitrostat] 0.4 mg SUBLINGUAL Q5M PRN 15 Days 06/22/21 06/25/21 Rx #15 tab Allergies Allergy/AdvReac Type Severity Reaction Status Date / Time No Known Allergies Allergy Verified 06/25/21 10:50 Surgical - Exam Vital Signs Temp Pulse Resp BP Pulse Ox 98.3 F 68 16 163/61 96 06/25/21 10:53 06/25/21 10:53 06/25/21 10:53 06/25/21 10:53 06/25/21 10:53 - General well developed, well nourished, no distress - Eyes PERRL - ENT normal pinna - Neck no masses - Respiratory normal expansion - Cardiovascular Rhythm: regular - Abdomen Abdomen: soft, non tender Assessment and Plan Assessment: GERD we'll perform EGD. We'll also perform screening colonoscopy.
--- NOTE | 2021-06-25 12:16 | P.OP ---
Date of Procedure: 06/25/21 Preoperative Diagnosis: GERD Screening colonoscopy Postoperative Diagnosis: Antral gastritis Possible proctitis Procedure(s) Performed: EGD Colonoscopy Anesthesia: MAC Surgeon: Eduardo Moe Pathology: other (Antrum, rectum) Condition: stable Disposition: PACU Description of Procedure: Patient's placed on the endoscopy table in the lateral position. She received IV sedation. The gastroscope was oropharynx past esophagus and stomach. Scope was then pylorus. The first and second portion of the duodenum appeared normal. Scope was then brought back and the antrum this was mildly inflamed. Biopsies performed. Scope was unretroflexed and remainder the stomach appeared normal. The patient appears placed Leigh device this without evidence of inflammation or erosion. The GE junction was at 47 is. The distal esophagus appeared normal. Proximal esophagus appeared normal. Scope withdrawn for patient. Next digital rectal exam was performed which revealed no abnormalities. Flexible colonoscope was then placed patient anus passed with colon. The scope scope positioned and rectum appeared to be evidence of some inflammation. A biopsy performed. The scope was then placed throughout the colon. Scope was passed advanced into the right colon secondary tortuous valve. Scope was then withdrawn. Remainder the transverse colon, descending colon and sigmoid colon appeared normal. Scope was withdrawn for patient.
[2021-06-25 12:39] VITALS: BP 128/83
[2021-06-25 12:45] VITALS: PULSE 64; RESP 20
== END 2021-06-25 12:47 | disposition home or self-care (01) ==
LOC: ORWHC2ENDO 10:28
PROVIDERS: ATTEND Surgery
DX: Z12.11 Encounter for screening for malignant neoplasm of colon (principal); K21.9 Gastro-esophageal reflux disease without esophagitis; E07.9 Disorder of thyroid, unspecified; K29.50 Unspecified chronic gastritis without bleeding; Z80.1 Family history of malignant neoplasm of trachea, bronchus and lung; Z82.49 Family history of ischemic heart disease and other diseases of the circulatory system; Z83.3 Family history of diabetes mellitus; Z98.84 Bariatric surgery status; Z86.16 Personal history of COVID-19
CPT/HCPCS: 45380; 43239; 88305; J2001; J2704

== ENCOUNTER → 2021-07-16 | Outpatient (CLI) | payer OTHER ==
[2021-07-16 13:17] VITALS: BP 136/81; PULSE 69; RESP 16; TEMP 98.4; BMI 37.9
--- NOTE | 2021-07-31 11:02 | P.HPBAR ---
Bariatric H&P - History & Physicial H&P Date: 07/16/21 History & Physicial: Visit/CC: Band f/u Patient initial contact: Initial weight: 113.115 kg Initial weight in pounds: 249.38 Height: 5 ft 5 in Initial BMI: 41.5 Last weight: Current weight: 103.419 kg Current weight in pounds: 228.00 Current BMI: 37.9 [place] body weight (based on NIH guidelines): 56.699 kg Excess body weight loss: 17.1% The patient is a 51 year-old F who presents for Bariatric Assessment. Patient presents today for LAP-BAND follow-up. She states she's had some minimal GERD. She denies any dysphagia. Past Medical History Past Medical History: Thyroid Disorder Additional Past Medical History / Comment(s): Covid November 2020 History of Any Multi-Drug Resistant Organisms: None Reported Past Surgical History: Bariatric Surgery, Section Additional Past Surgical History / Comment(s): C SECTION X 4 LAP BAND 2011 Past Anesthesia/Blood Transfusion Reactions: No Reported Reaction Past Psychological History: No Psychological Hx Reported Smoking Status: Never smoker Past Alcohol Use History: Occasional Past Drug Use History: None Reported - Past Family History Father Family Medical History: Cancer Mother Family Medical History: Coronary Artery Disease (CAD) Brother(s) Family Medical History: Diabetes Mellitus Sister(s) Family Medical History: Diabetes Mellitus Daughter(s) History Unknown: Yes Surgical - Exam Vital Signs Temp Pulse Resp BP 98.4 F 69 16 136/81 07/16/21 13:15 07/16/21 13:15 07/16/21 13:15 07/16/21 13:15 - General well developed, well nourished, no distress - Eyes PERRL - ENT normal pinna - Neck no masses - Respiratory normal expansion - Cardiovascular Rhythm: regular - Abdomen Abdomen: soft, non tender Bariatric Assessment & Plan Plan: Status post lap band procedure. Patient's crit is minimal will be observed. She'll follow-up in 4 weeks. Bariatric Checklist Checklist: Plan: Checklist: EGD: 1. Hiatal hernia: 2. H. Pylori: HgbA1c: Vitamin D: Smoking: Primary care physician referral: Dr. Linares Psychiatry clearance: Cardiology clearance: Sleep study: Diet journal: VTE risk score: VTE risk level: Rehab needs at discharge:
== END ==
LOC: BARWHC3 12:44
PROVIDERS: ATTEND Surgery
DX: Z09 Encounter for follow-up examination after completed treatment for conditions other than malignant neoplasm (principal); K21.9 Gastro-esophageal reflux disease without esophagitis; Z98.84 Bariatric surgery status
CPT/HCPCS: 99211

== ENCOUNTER → 2021-09-17 | Outpatient (CLI) | payer OTHER ==
[2021-09-17 13:25] VITALS: BP 146/88; PULSE 69; RESP 18; TEMP 98.2; BMI 38.2
--- NOTE | 2021-09-18 12:52 | P.HPBAR ---
Bariatric H&P - History & Physicial H&P Date: 09/17/21 History & Physicial: Visit/CC: follow up / lap band Patient initial contact: Initial weight: 113.115 kg Initial weight in pounds: 249.38 Height: 5 ft 5 in Initial BMI: 41.5 Last weight: Current weight: 104.326 kg Current weight in pounds: 230.00 Current BMI: 38.2 [place] body weight (based on NIH guidelines): 56.699 kg Excess body weight loss: 15.5% The patient is a 51 year-old F who presents for Bariatric Assessment. Patient p resents today for LAP-BAND follow-up. She's had some minimal GERD. Past Medical History Past Medical History: Thyroid Disorder Additional Past Medical History / Comment(s): Covid November 2020 History of Any Multi-Drug Resistant Organisms: None Reported Past Surgical History: Bariatric Surgery, Section Additional Past Surgical History / Comment(s): C SECTION X 4 LAP BAND 2011 Past Anesthesia/Blood Transfusion Reactions: No Reported Reaction Past Psychological History: No Psychological Hx Reported Smoking Status: Never smoker Past Alcohol Use History: Occasional Past Drug Use History: None Reported - Past Family History Father Family Medical History: Cancer Mother Family Medical History: Coronary Artery Disease (CAD) Brother(s) Family Medical History: Diabetes Mellitus Sister(s) Family Medical History: Diabetes Mellitus Daughter(s) History Unknown: Yes Surgical - Exam Vital Signs Temp Pulse Resp BP 98.2 F 69 18 146/88 09/17/21 13:21 09/17/21 13:21 09/17/21 13:21 09/17/21 13:21 - General well developed, well nourished, no distress - Eyes PERRL - ENT normal pinna - Neck no masses - Respiratory normal expansion - Cardiovascular Rhythm: regular - Abdomen Abdomen: soft, non tender Bariatric Assessment & Plan Plan: Patient's lap band was not adjusted. Her GERD is minimal old observe. She'll follow-up in 4 weeks. Bariatric Checklist Checklist: Plan: Checklist: EGD: 1. Hiatal hernia: 2. H. Pylori: HgbA1c: Vitamin D: Smoking: Primary care physician referral: Dr. Linares Psychiatry clearance: Cardiology clearance: Sleep study: Diet journal: VTE risk score: VTE risk level: Rehab needs at discharge:
== END ==
LOC: BARWHC3 12:40
PROVIDERS: ATTEND Surgery
DX: Z09 Encounter for follow-up examination after completed treatment for conditions other than malignant neoplasm (principal); K21.9 Gastro-esophageal reflux disease without esophagitis; Z98.84 Bariatric surgery status
CPT/HCPCS: 99211

== ENCOUNTER → 2021-12-05 | Outpatient (CLI) | payer OTHER ==
--- NOTE | 2021-12-05 16:37 | XR ---
Chest x-ray with left RIBS HISTORY: R 52 Frontal view of the chest, 4 views of left ribs correlated to prior chest x-ray dated 06/21/2021 The cardiac mediastinal silhouette is stable. There is no evident airspace disease, pneumothorax, or pleural effusion. Patient is post lap band. Thoracic spondylosis is present. There is no evident displaced rib fracture. IMPRESSION: Difficult fracture is suspected clinically then bone scan may be of benefit.
--- NOTE | 2021-12-06 06:42 | CT ---
EXAMINATION TYPE: CT abdomen pelvis w con DATE OF EXAM: 12/05/2021 HISTORY: LLQ pain CT DLP: 1930.80mGycm Automated Exposure Control for Dose Reduction was Utilized. CONTRAST: CT scan of the abdomen and pelvis is performed with oral and with IV Contrast, patient injected with 100 mL of Isovue 300. COMPARISON: None. FINDINGS: LUNG BASES: No significant abnormality is appreciated. LIVER/GB: Liver is diffusely low dense system with diffuse fatty infiltration. 2 large intraluminal g allstones in the gallbladder without surrounding inflammatory change. No biliary dilatation. PANCREAS: No significant abnormality is seen. SPLEEN: No significant abnormality is seen. ADRENALS: No significant abnormality is seen. KIDNEYS: Near 1.0 cm partially exophytic low dense lesion posteriorly left kidney series 7 image 29 f avors benign thin-walled cyst. Symmetric cortical medullary uptake and excretion without hydronephros is seen bilaterally. BOWEL: Oral contrast has not reached the level of terminal ileum making evaluation of distal bowel sl ightly suboptimal. Lap band device is satisfactory in position with satisfactory phi angle just below diaphragm. No suspicious small or large bowel dilatation is seen. Slightly redundant sigmoid colon. No significant diverticulosis or CT evidence for acute diverticulitis. Normal-appearing appendix from cecum right lower quadrant. UTERUS/ADNEXA: Anteverted uterus. LYMPH NODES: No greater than 1cm abdominal or pelvic lymph nodes are appreciated. OSSEOUS STRUCTURES: Vacuum disc phenomenon with moderate disc space narrowing L5-S1 level. Multilevel facet arthropathy mid to lower lumbar spine. OTHER: No significant additional abnormality is seen. IMPRESSION: Gallstones without CT evidence for acute cholecystitis. No suspicious finding identified to account for patient's symptoms of left lower quadrant pain.
== END | disposition home or self-care (01) ==
LOC: RADCTMAIN 15:21
PROVIDERS: ATTEND Surgery
DX: K80.20 Calculus of gallbladder without cholecystitis without obstruction (principal); R52 Pain, unspecified
CPT/HCPCS: 71101; 74177; Q9967

== ENCOUNTER → 2021-12-10 | Outpatient (CLI) | payer OTHER ==
[2021-12-10 13:27] VITALS: BP 137/85; PULSE 86; TEMP 97.8; BMI 39.4
--- NOTE | 2021-12-10 14:29 | P.HPBAR ---
Bariatric H&P - History & Physicial H&P Date: 12/10/21 History & Physicial: Visit/CC: lap band follow up Patient initial contact: Initial weight: 113.115 kg Initial weight in pounds: 249.38 Height: 5 ft 5 in Initial BMI: 41.5 Last weight: Current weight: 107.501 kg Current weight in pounds: 237.00 Current BMI: 39.4 [place] body weight (based on NIH guidelines): 56.699 kg Excess body weight loss: 9.9% The patient is a 51 year-old F who presents for Bariatric Assessment. Patient presents today for bariatric follow. Should CAT scan shows evidence of cholelithiasis. She's had some intermittent epigastric pain. Past Medical History Past Medical History: Thyroid Disorder Additional Past Medical History / Comment(s): Covid November 2020 History of Any Multi-Drug Resistant Organisms: None Reported Past Surgical History: Bariatric Surgery, Section Additional Past Surgical History / Comment(s): C SECTION X 4 LAP BAND 2011 Past Anesthesia/Blood Transfusion Reactions: No Reported Reaction Smoking Status: Never smoker - Past Family History Father Family Medical History: Cancer Mother Family Medical History: Coronary Artery Disease (CAD) Brother(s) Family Medical History: Diabetes Mellitus Sister(s) Family Medical History: Diabetes Mellitus Daughter(s) History Unknown: Yes Surgical - Exam Vital Signs Temp Pulse BP 97.8 F 86 137/85 12/10/21 13:26 12/10/21 13:26 12/10/21 13:26 - General well developed, well nourished, no distress - Eyes PERRL - ENT normal pinna - Neck no masses - Respiratory normal expansion - Cardiovascular Rhythm: regular - Abdomen Abdomen: soft, non tender Bariatric Assessment & Plan Plan: Cholelithiasis. Patient will be scheduled for laparoscopic cholecystectomy Bariatric Checklist Checklist: Plan: Checklist: EGD: 1. Hiatal hernia: 2. H. Pylori: HgbA1c: Vitamin D: Smoking: Primary care physician referral: Dr. Linares Psychiatry clearance: Cardiology clearance: Sleep study: Diet journal: VTE risk score: VTE risk level: Rehab needs at discharge:
== END ==
LOC: BARWHC3 12:46
PROVIDERS: ATTEND Surgery
DX: K80.20 Calculus of gallbladder without cholecystitis without obstruction (principal); Z98.84 Bariatric surgery status
CPT/HCPCS: 99212

== ENCOUNTER → 2022-01-03 | Outpatient (CLI) | payer OTHER ==
--- NOTE | 2022-01-04 09:51 | MM ---
Reason for exam: clinical finding. Last mammogram was performed 4 years and 6 months ago. History: Patient is postmenopausal. Family history of breast cancer in mother and breast cancer in paternal grandmother. Indicated problem(s): palpable abnormality in the left breast. Physical Findings: A clinical breast exam by your physician is recommended on an annual basis and results should be correlated with mammographic findings. MG 3D Diag Mammo W/Cad HELDER Bilateral CC and MLO view(s) were taken. LM view(s) were taken of the left breast. Prior study comparison: July 11, 2017, mammogram, performed at [facility]. December 20, 2015, mammogram, performed at [facility]. There is no discrete abnormality. These results were verbally communicated with the patient and result sheet given to the patient on 01/03/22. ASSESSMENT: Benign, BI-RAD 2 RECOMMENDATION: Routine screening mammogram of both breasts in 1 year.
--- NOTE | 2022-01-04 09:55 | USB ---
Reason for exam: clinical finding. History: Patient is postmenopausal. Family history of breast cancer in mother and breast cancer in paternal grandmother. Indicated problem(s): palpable abnormality in the left breast. US Breast LT Left complete breast ultrasound includes all four quadrants, the retroareolar region and axilla. Finding demonstrates a 0.6 x 0.7 x 0.4cm oval, irregular, complex, cystic, vascular lesion at 2 o'clock, a 0.2 x 0.3 x 0.2cm oval, cystic lesion at 6 o'clock and a 3.0 x 1.8 x 1.0cm lymph node at the axilla. These results were verbally communicated with the patient and result sheet given to the patient on 01/03/22. ASSESSMENT: Suspicious, BI-RAD 4 RECOMMENDATION: Ultrasound core biopsy of the left breast. Called Dr. Linares's office with mammographic findings and has scheduled an appointment for the patient for 01/10/22 at 1:[address] Moe. Biopsy scheduled for 01/16/22 at 10:30. PRELIMINARY REPORT CALLED AND FAXED TO DR. MOE ON 01/04/22.
== END | disposition home or self-care (01) ==
LOC: RADMAMWWP 13:33
PROVIDERS: ATTEND Internal Medicine
DX: N63.20 Unspecified lump in the left breast, unspecified quadrant (principal); Z78.0 Asymptomatic menopausal state; Z80.3 Family history of malignant neoplasm of breast
CPT/HCPCS: 77066; 76641; G0279; 77062

== ENCOUNTER → 2022-01-16 | Day surgery (SDC) | payer OTHER ==
[2022-01-16 10:01] VITALS: TEMP 98.2
[2022-01-16 11:03] VITALS: BP 146/75; PULSE 67; RESP 16
--- NOTE | 2022-01-16 13:13 | USB ---
EXAMINATION TYPE: US biopsy breast VAD LT, MG diagnostic mammo LT wo CAD DATE OF EXAM: 01/16/2022 CLINICAL HISTORY: R92.8 ABN MAMMO. TECHNIQUE: Ultrasound guided core biopsy of left 2:00 breast. COMPARISON: NONE FINDINGS: The procedure of ultrasound guided core biopsy was explained to the patient. Benefits, alt ernatives, and risks were discussed. An informed consent was then obtained. The patient was placed in supine positioning for imaging and for the procedure. The overlying skin w as prepped and draped in usual sterile fashion. Lidocaine buffered with bicarbonate was used as anes thetic into the skin and subcutaneous tissue up to area of concern in the left 2:00 breast. Under ultrasound guidance, a 12-gauge vacuum assisted biopsy gun device was used to obtain 4 core nalini ples. Following this, a biopsy clip was left in lesion. Postprocedural mammogram demonstrates appro priate clip placement. The patient tolerated the procedure well without any immediate complication. The patient was kept in the radiology department for short stay after the procedure and then discharged home in stable condi tion. IMPRESSION: Successful, uncomplicated ultrasound guided core biopsy of area of concern in the left 2: 00 breast, full pathology results to follow.
== END | disposition home or self-care (01) ==
LOC: RADUSWWP 09:28
PROVIDERS: ATTEND Surgery
DX: R92.8 Other abnormal and inconclusive findings on diagnostic imaging of breast (principal)
CPT/HCPCS: 77065; 19083; A4648; J2001

== ENCOUNTER 2022-03-12 06:34 | Inpatient (IN) | payer OTHER ==
[2022-03-11 09:01] VITALS: BMI 38.2
[~2022-03-12 06:34] MED LIST: ACETAMINOPHEN TAB 500 MG TAB PO PRN; DEXAMETHASONE SOD PHOSPHATE 4 MG/ML 1 ML VIAL IV ONE; HEPARIN SODIUM,PORCINE/PF 5,000 UNIT/0.5 ML SYRINGE SQ PRN; MIDAZOLAM 2 MG/2 ML VIAL IV PRN; ONDANSETRON 4 MG/2 ML VIAL IVP ONE; Pre Op ABX Message 1 EACH MISC MISCELLANE ONE; SCOPOLAMINE 1 MG/72 HR PATCH TRANSDERM ONE
[2022-03-12] MEDS ORDERED: HYDROmorphone 0.5 MG/0.5 ML SYRINGE IVP PRN (07:00)
[2022-03-12] MEDS: LACTATED RINGERS 1,000 ML IV SCH ×2 (07:03→15:35)
[2022-03-12 07:35] LABS: Basophils # (A) 0.1 k/uL (0-0.2); Basophils % (A) 1 %; Eosinophils # (A) 0.3 k/uL (0-0.7); Eosinophils % (A) 5 %; HCT 40.6 % (34.0-46.0); HGB 13.5 gm/dL (11.4-16.0); Lymphocytes # (A) 1.4 k/uL (1.0-4.8); Lymphocytes % (A) 24 %; MCH 31.1 pg (25.0-35.0); MCHC 33.3 g/dL (31.0-37.0); MCV 93.3 fL (80.0-100.0); Monocytes # (A) 0.3 k/uL (0-1.0); Monocytes % (A) 5 %; Neutrophils # (A) 3.7 k/uL (1.3-7.7); Neutrophils % (A) 65 %; Platelet Count 204 k/uL (150-450); RBC 4.35 m/uL (3.80-5.40); RDW 12.7 % (11.5-15.5); WBC 5.7 k/uL (3.8-10.6)
[2022-03-12] MEDS ORDERED: ROCURONIUM 10 MG/ML (5 ML VIAL) IV ONE (07:50)
[2022-03-12] MEDS ORDERED: SUCCINYLCHOLINE CHLORIDE 100 MG/5 ML SYR IV ONE (07:50)
[2022-03-12] MEDS ORDERED: PROPOFOL 10 MG/ML 20 ML VIAL IV ONE (07:50)
[2022-03-12] MEDS ORDERED: MIDAZOLAM 2 MG/2 ML VIAL ONE (07:50)
[2022-03-12] MEDS ORDERED: NEOSTIGMINE 1 MG/ML 10 ML VIAL ONE (07:50)
[2022-03-12] MEDS ORDERED: fentaNYL (PF) 50 MCG/ML 2 ML AMP ONE (07:50)
[2022-03-12] MEDS ORDERED: GLYCOPYRROLATE 0.2 MG/ML 2 ML VIAL ONE (07:50)
[2022-03-12] MEDS ORDERED: LIDOCAINE 2% INJ 20 MG/ML (2 ML VIAL) ONE (07:50)
--- NOTE | 2022-03-12 07:50 | P.GSHP ---
History of Present Illness H&P Date: 03/12/22 Chief Complaint: Left breast cancer This is a 52-year-old female who was recently diagnosed left breast cancer. Patient states that she has a strong family history of breast cancer. Patient has elected to undergo left modified radical mastectomy and right simple mastectomy with breast reconstruction by Dr. Ramos. Past Medical History Past Medical History: Cancer, Pneumonia, Thyroid Disorder Additional Past Medical History / Comment(s): Current left breast cancer, no chemo or radiation. Hx Covid November 2020. Hx of "MRSA Pneumonia" at [facility] a couple years ago. Cyst on kidney. Varicose veins. History of Any Multi-Drug Resistant Organisms: MRSA Date of last positivie culture/infection: 2019 MDRO Source:: lungs Past Surgical History: Bariatric Surgery, Section, Cholecystectomy Additional Past Surgical History / Comment(s): Section X 4, Lap Band 2011. Past Anesthesia/Blood Transfusion Reactions: No Reported Reaction, Motion Sickness Past Psychological History: Anxiety, Depression Smoking Status: Never smoker Past Alcohol Use History: Occasional Past Drug Use History: None Reported - Past Family History Father Family Medical History: Cancer Mother Family Medical History: Coronary Artery Disease (CAD) Brother(s) Family Medical History: Diabetes Mellitus Sister(s) Family Medical History: Diabetes Mellitus Daughter(s) History Unknown: Yes Medications and Allergies Home Medications Medication Instructions Recorded Confirmed Type FLUoxetine HCL [PROzac] 40 mg PO QAM 10/16/20 03/11/22 History Levothyroxine Sodium [Synthroid] 100 mcg PO QAM 06/21/21 03/11/22 History Oxybutynin Chloride [Oxybutynin 10 mg PO DAILY 06/21/21 03/12/22 History Chloride ER] Liothyronine Sodium [Cytomel] 5 mcg PO QAM 01/07/22 03/12/22 History Allergies Allergy/AdvReac Type Severity Reaction Status Date / Time No Known Allergies Allergy Verified 03/12/22 06:50 Surgical - Exam Vital Signs Temp Pulse Resp BP Pulse Ox 97.3 F L 60 16 149/83 95 03/12/22 06:57 03/12/22 06:57 03/12/22 06:57 03/12/22 06:57 03/12/22 06:57 - General well developed, well nourished, no distress - Eyes PERRL - ENT normal pinna - Neck no masses - Respiratory normal expansion - Cardiovascular Rhythm: regular - Abdomen Abdomen: soft, non tender - Integumentary Well-healed left core biopsy incision in left breast Results - Labs 03/12/22 07:17 Assessment and Plan Assessment: Left breast cancer. Patient is left to undergo left modified radical mastectomy and right simple mastectomy with reconstruction. Patient has been extensive counseled on treatment options in the office.
[2022-03-12] MEDS ORDERED: LACTATED RINGERS 1,000 ML IV ONE (10:49)
[2022-03-12] MEDS ORDERED: ONDANSETRON 4 MG/2 ML VIAL IVP ONE ×2 (12:00→12:01)
--- NOTE | 2022-03-12 12:44 | P.OP ---
Date of Procedure: 03/12/22 Preoperative Diagnosis: Left breast cancer Postoperative Diagnosis: Left breast cancer Procedure(s) Performed: Left modified radical mastectomy Right simple mastectomy Breast reconstruction by Dr. Westbrook Anesthesia: NIESHA Surgeon: Eduardo Moe Estimated Blood Loss (ml): 50 Pathology: other (Left breast and axillary contents, right breast) Condition: stable Disposition: PACU Description of Procedure: The patient's placed on the operative table in supine position. She had been previously marked by Dr. Ramos. The patient received general anesthesia. She was prepped and draped usual sterile fashion. Dr. Ramos had marked the mastectomy flaps sites. The right subcostal mastectomy performed first. The superior and inferior mastectomy incision was created using a 15 blade. Then using electrocautery the mastectomy flaps were created. The mastectomy flaps created to the level of the clavicle superiorly the axillary laterally. The inframammary crease inferiorly and the sternum medially. Once the flaps were created. The breast was removed from the chest wall using left cautery. Several small perforating veins were controlled using left cautery. The specimen was sent to pathology. Next the left modified radical medicine performed. The mastectomy flaps sites were incised using 15 blade. Electrocautery the mastectomy flaps are created. The dissection was a level of the sternum medially, the clavicle superiorly, the inframammary crease inferiorly. And then the axilla laterally. The breast was then removed. Using left cautery. Several small perforating vessels were controlled with left cautery. Next the clavipectoral fascia was then opened. And then using blunt and sharp dissection with cautery the x-ray contents were dissected free. Care significant preserve the long thoracic and the thoracodorsal nerve. Specimens of pathology. A suture tag was placed near the nipple in the superior position. The wound was examined. No bleeding seen. At this point Dr. Ramos performed his portion of the procedure. Please see his operative chart.
[2022-03-12] MEDS ORDERED: ONDANSETRON 4 MG/2 ML VIAL IVP PRN (13:56)
--- NOTE | 2022-03-12 14:18 | OP ---
OPERATIVE REPORT DATE OF SURGERY: 03/12/2022. SURGEON: Dr. Jono Westbrook PREOPERATIVE DIAGNOSIS: 1. Acquired loss, right and left breast. 2. Left breast cancer. POSTOPERATIVE DIAGNOSIS: 1. Acquired loss, right and left breast. 2. Left breast cancer. OPERATIVE PROCEDURE: 1. Immediate reconstruction, right breast, following mastectomy with insertion of tissue dermatologist and subsequent outpatient expansion. 2. Immediate reconstruction, left breast, following mastectomy with insertion of tissue dermatologist and subsequent outpatient expansion. 3. Implantation of reconstructive graft for right and left breast reconstruction. 4. Local tissue transposition for right and left breast reconstruction, 301 cm2. OPERATIVE INDICATIONS: The patient is a 52-year-old female with invasive cancer of the left breast. She has elected to proceed with left modified radical mastectomy and a right simple mastectomy. She desires breast reconstruction. The patient has large ptotic breasts with significant skin envelopes. The patient has been counseled reconstruction and is agreeable to a tissue dermatologist technique. Today's surgery will also include removal of redundant skin and local tissue flap transposition for closure to optimize reconstruction. The patient is aware of potential risks and complications of the surgery and has requested that I perform the surgery. This has been coordinated with her general surgeon performing the mastectomies, Dr. Moe. OPERATIVE PROCEDURE SUMMARY: The patient was seen in the preoperative area and markings were made and procedure reviewed; all questions answered. She was transported to the operating room, where she was placed in supine position. Following induction of general endotracheal anesthesia, the patient was prepped and draped in the usual fashion. Dr. Moe and his team proceeded with right simple mastectomy, then left modified radical mastectomy. With these procedures complete, I entered the room. Sponge and needle counts from prior procedure were correct. Mastectomy wounds were open, with no active bleeding. The incisional approach for the mastectomies had been via Blount pattern diagram drawn preoperatively to remove the redundant skin with the mastectomy specimen. Both cavities were irrigated. On the right side, the pectoralis major muscle was identified where it joined the chest wall. Loose areolar connective tissue was divided with cautery, allowing entry into the potential plane between the pectoralis major and minor muscles was which bluntly developed. Medial attachment fibers and all inferior attachment fibers to ribs were released with cautery. Additional muscle tissue was required for reconstruction. Inferomedially rectus abdominis muscle and fascia, inferolaterally external abdominal oblique muscle and fascia, and laterally serratus anterior muscle and fascia were all elevated with cautery through this technique. Once a sufficient-sized submuscular pocket was created, hemostasis was maintained with cautery. Irrigation was performed. Hemostasis was excellent. Attention was turned towards the left side. The same step was completed on the left side, identifying the pectoralis major muscle on the left side where the muscle joined the chest wall laterally. Loose areolar connective tissue was divided with cautery, allowing entering into the potential plane between the pectoralis major and minor muscles, which was bluntly developed. Then all medial attachments of the pectoralis major muscle to ribs and all inferior attachments to ribs were released with cautery. Additional muscle tissue was required for reconstruction. Inferomedially rectus abdominis muscle and fascia, inferolaterally external abdominal oblique muscle and fascia and roxanne serratus anterior muscle and fascia were all elevated with cautery, maintaining hemostasis with cautery during dissection. Irrigation was performed on each side. Hemostasis was excellent. Cavities were sized. Additional dissection was performed to optimize symmetry on each side. Tissue expanders were now opened onto the field. The right-sided tissue dermatologist was placed first. After opening the device it was only handled by the surgeon. All air was extracted and 100 mL 0.9 normal saline was instilled. This was inserted in the reconstructive cavity. Orientation was assured under direct vision. The left-sided device was opened next and placed in a similar fashion on the left side with 100 mL 0.9 normal saline. The tissue expanders both measured 550 mL, reference #[id number] from the [employer]. The left-sided serial number was #[id number] and the right- sided serial number was #[id number]. The muscle flap tissue was weakened on both sides from the prior mastectomy with thinning of tissues and could not be closed without significant tension; therefore SurgiMend reconstructive graft was opened onto the field; two pieces measuring 10 x 15 cm revitalized in room-temperature saline. Once ready, they were inserted in the reconstructive cavity. The deep to the muscle flap tissue was over the dermatologist, spanning the area where the muscle flap was thin to buttress the tissue as well as the gap where the muscle could not be closed. The SurgiMend was it was inset to the muscle flap tissue using interrupted and running 3-0 Vicryl sutures. The expanders were now filled to a volume of 300 mL on each side, placing optimal tension on the flap and SurgiMend. Irrigation was performed. Hemostasis was excellent. One drain was placed on the right side and two on the left side. All drains were 19 round Luan channel drains. On the left side a drain was placed for the reconstructed mastectomy field and a second drain for the axillary dissection area. Drains were all brought out through separate stab incisions. The right and left anterior lateral chest wall was sutured in place with 2-0 Prolene. The closure was completed with transposition of skin and subcutaneous tissue on the right and left side, completing the Blount-style closure. The transposed tissue measured 22 x 7 cm on the right and 21 x 7 cm on the left. On both sides the medial and lateral superior triangular flaps were inset to the inferior midline using deep inverted 4-0 Monocryl suture, then the deep dermis completing the dermal closure in all locations using inverted interrupted 4-0 Monocryl. The transverse portion of the closure was completed short running subcuticular 3-0 Prolene and the vertical closure completed with running 5-0 Prolene in simple fashion. Drains were connected to closed-bulb suction and patent. Surgical hutchinson were cleansed with saline, dried, and postoperative bandages were placed using sterile tape over suture repairs followed by Kerlix squares secured with 3 Medipore tape. Drain sponges also secured with tape and then the patient was awakened from her anesthetic, extubated and transferred to the recovery room in good condition with stable vital signs. The estimated blood loss was 100 mL for all procedures today. The final fill of each dermatologist was 300 mL. There were no complications. MMODL / IJN: [id number] /
[2022-03-12] MEDS: HYDROmorphone 1 MG/ML 1 ML SYRINGE IVP PRN ×3 (15:34→22:18)
[2022-03-12] MEDS: OXYBUTYNIN 10 MG TAB.ER.24 PO SCH (16:58)
[2022-03-12] MEDS: FLUoxetine HCL 20 MG CAP PO SCH ×2 (16:58→16:59)
--- NOTE | 2022-03-12 19:42 | CONS ---
CONSULTATION REASON FOR CONSULTATION: Advice regarding hypothyroidism and other medical issues, requested by Surgery. HISTORY OF PRESENT ILLNESS: This 52-year-old woman with a past medical history of pneumonia, history of hypothyroidism and left breast cancer underwent left modified radical mastectomy, right simple mastectomy and breast reconstruction by Dr. Moe and Dr. Westbrook. The patient is complaining of some right-sided eye dryness and some grittiness. There is no history of any fever, rigor or chills at this time. Patient had dry eyes previously. PAST MEDICAL HISTORY: History of pneumonia, hypothyroidism. MEDICATIONS: Reviewed. They include oxybutynin. Doses and other medications are reviewed. ALLERGIES: NONE. FAMILY HISTORY: Cancer in the family. SOCIAL HISTORY: No history of smoking. REVIEW OF SYSTEMS: Fourteen-point review of systems negative except as mentioned earlier. PHYSICAL EXAMINATION: Pulse is 61, blood pressure 155/80, respiration 16. NECK: No jugular venous distention. CARDIOVASCULAR: S1, S2 muffled. RESPIRATION: Clear to auscultation. CHEST: Status post surgery. ABDOMEN: Soft, nontender. NERVOUS SYSTEM: No focal deficit. LEGS: No edema. No swelling. SKIN: No ulcer, rash, bleeding. JOINTS: No active deforming arthropathy. LABS: Reviewed. ASSESSMENT: 1. Status post left modified radical mastectomy, simple mastectomy and breast reconstruction. 2. Dryness of the right eye. 3. History of pneumonia. 4. History of left breast cancer. 5. History of MRSA. 6. History of bariatric surgery. RECOMMENDATIONS AND DISCUSSION: In this 52-year-old woman who presented with multiple medical issues, at this time I recommend to continue the current medications, continue symptomatic treatment. Otherwise, resume the home medications. DVT prophylaxis. Incentive spirometry. Local eyedrops. Will monitor closely. Further recommendations to follow. Patient may be asked to follow up with primary physician closely after discharge. Thank you, Dr. Moe. MMODL / IJN: [id number] /
[2022-03-12] MEDS: TOBRAMYCIN 0.3% OPHTH DROPS 5 ML BTL RIGHT EYE SCH (22:08)
[2022-03-12] MEDS: HEPARIN SODIUM,PORCINE/PF 5,000 UNIT/0.5 ML SYRINGE SQ SCH (22:09)
[2022-03-13] MEDS: HYDROmorphone 1 MG/ML 1 ML SYRINGE IVP PRN ×4 (00:48→21:05)
[2022-03-13] MEDS: LACTATED RINGERS 1,000 ML IV SCH ×4 (03:29→14:21)
[2022-03-13] MEDS: LEVOTHYROXINE 100 MCG TAB PO SCH (06:05)
[2022-03-13] MEDS: FLUoxetine HCL 20 MG CAP PO SCH (08:23)
[2022-03-13] MEDS: LIOTHYRONINE SODIUM 5 MCG TAB PO SCH (08:23)
[2022-03-13] MEDS: HEPARIN SODIUM,PORCINE/PF 5,000 UNIT/0.5 ML SYRINGE SQ SCH ×2 (08:24→21:10)
[2022-03-13] MEDS: OXYBUTYNIN 10 MG TAB.ER.24 PO SCH (08:24)
[2022-03-13] MEDS: TOBRAMYCIN 0.3% OPHTH DROPS 5 ML BTL RIGHT EYE SCH ×2 (08:28→21:11)
[2022-03-13] MEDS ORDERED: ACETAMINOPHEN TAB 325 MG TAB PO PRN (09:43)
[2022-03-13 11:14] LABS: Basophils # (A) 0.1 k/uL (0-0.2); Basophils % (A) 1 %; Eosinophils # (A) 0.1 k/uL (0-0.7); Eosinophils % (A) 1 %; HCT 36.9 % (34.0-46.0); HGB 12.1 gm/dL (11.4-16.0); Lymphocytes # (A) 1.4 k/uL (1.0-4.8); Lymphocytes % (A) 14 %; MCH 31.3 pg (25.0-35.0); MCHC 32.8 g/dL (31.0-37.0); MCV 95.4 fL (80.0-100.0); Mean Platelet Volume 9.5; Monocytes # (A) 0.6 k/uL (0-1.0); Monocytes % (A) 6 %; Neutrophils # (A) 7.7 k/uL (1.3-7.7); Neutrophils % (A) 78 %; Platelet Count 215 k/uL (150-450); RBC 3.86 m/uL (3.80-5.40); RDW 12.8 % (11.5-15.5); WBC 9.9 k/uL (3.8-10.6)
[2022-03-13 11:27] LABS: African American GFR (CKD) >90 (>60 ml/min/1.73 sqM); Anion Gap 3 mmol/L; Blood Urea Nitrogen 11 mg/dL (7-17); Calcium 8.6 mg/dL (8.4-10.2); Carbon Dioxide 31 mmol/L (22-30); Chloride 98 mmol/L (98-107); Glucose 112 mg/dL (74-99); Non-African American GFR(CKD) >90 (>60 ml/min/1.73 sqM); Potassium 4.1 mmol/L (3.5-5.1); Sodium 132 mmol/L (137-145)
--- NOTE | 2022-03-13 14:26 | P.PN ---
Subjective Progress Note Date: 03/13/22 This is a pleasant 52-year-old female admitted under surgical services and is status post left modified radical mastectomy along with right simple mastectomy and breast reconstruction with general surgery and Dr. Westbrook and is being closely monitored. On exam today patient denies any further eye irritation although just feels generalized fatigue and did not sleep very well last night. Patient tolerating diet and encouraged oral intake as patient reports to not eating much. Patient denies any chest pain or shortness of breath. Patient is afebrile. Pain management per primary service. Patient is continued on IV hydration at 100 an hour and repeat labs have been ordered and pending at this t [facility] and will follow-up with labs. Review of systems: Constitutional: reports of fatigue, no reports of fever, or chills Cardiovascular: No reports of chest pain or palpitations Respiratory: No reports of shortness of breath or cough GI: No reports of nausea, no reports of of vomiting, patient reports decreased appetite : No reports of dysuria or retention Neurovascular: reports of generalized weakness All medications have been reviewed Active Medications Acetaminophen (Acetaminophen Tab 325 Mg Tab) 650 mg PO Q6HR PRN PRN Reason: Fever and/ or Pain Last Admin: 03/13/22 10:09 Dose: 650 mg Documented by: Fluoxetine HCl (Fluoxetine Hcl 20 Mg Cap) 40 mg PO QAM [facility] Last Admin: 03/13/22 08:23 Dose: 40 mg Documented by: Heparin Sodium (Porcine) (Heparin Sodium,Porcine/Pf 5,000 Unit/0.5 Ml Syringe) 5,000 unit SQ Q12HR [facility] Last Admin: 03/13/22 08:24 Dose: 5,000 unit Documented by: Hydromorphone HCl (Hydromorphone 1 Mg/Ml 1 Ml Syringe) 1 mg IVP Q3HR PRN PRN Reason: Pain Last Admin: 03/13/22 10:05 Dose: 1 mg Documented by: Lactated Ringer's (Lactated Ringers) 1,000 mls @ 20 mls/hr IV .Q24H [facility] Last Admin: 03/13/22 07:21 Dose: Not Given Documented by: Lactated Ringer's (Lactated Ringers) 1,000 mls @ 100 mls/hr IV .Q10H [facility] Last Admin: 03/13/22 08:29 Dose: 100 mls/hr Documented by: Levothyroxine Sodium (Levothyroxine 100 Mcg Tab) 100 mcg PO QAM@0630 [facility] Last Admin: 03/13/22 06:05 Dose: 100 mcg Documented by: Liothyronine Sodium (Liothyronine Sodium 5 Mcg Tab) 5 mcg PO QAM [facility] Last Admin: 03/13/22 08:23 Dose: 5 mcg Documented by: Ondansetron HCl (Ondansetron 4 Mg/2 Ml Vial) 4 mg IVP Q6HR PRN PRN Reason: Nausea And Vomiting Oxybutynin Chloride (Oxybutynin 10 Mg Tab.Er.24) 10 mg PO DAILY [facility] Last Admin: 03/13/22 08:24 Dose: 10 mg Documented by: Oxycodone HCl (Oxycodone Hcl 5 Mg Tab) 5 mg PO Q6HR PRN PRN Reason: Pain Last Admin: 03/13/22 13:22 Dose: 5 mg Documented by: Tobramycin (Tobramycin 0.3% Ophth Drops 5 Ml Btl) 1 drops RIGHT EYE Q12HR [facility] Last Admin: 03/13/22 08:28 Dose: 1 drops Documented by: PHYSICAL EXAMINATION: GENERAL: The patient is alert and oriented x4, Well developed, well nourished. HEENT: Pupils are round and equally reacting to light. EOMI. no scleral icterus. No conjunctival pallor. Normocephalic, atraumatic. No pharyngeal erythema. No thyromegaly. CARDIOVASCULAR: S1 and S2 muffled, postsurgical chest PULMONARY: diminished breath sounds bilaterally with no wheezing or rhonchi noted. ABDOMEN: soft. Nontender on exam. non-distended, normoactive bowel sounds. No palpable organomegaly. MUSCULOSKELETAL: No joint swelling or deformity. EXTREMITIES: No cyanosis, clubbing, or pedal edema. NEUROLOGICAL: Gross neurological examination did not reveal any focal deficits. SKIN: No rashes. Assessment: Status post left modified radical mastectomy and simple mastectomy on the right with breast reconstruction Dryness of the right eye, improved History of pneumonia History of left breast cancer History of MRSA history of bariatric surgery GI prophylaxis DVT prophylaxis Full code Plan: Recommend to continue with current medications and management per surgical services. Patient was maintained on IV saline at 100 and hour and is tolerating diet and oral intake and will discontinue. Patient is mildly hyponatremic at 132 and encouraged oral intake. Patient feels generalized fatigue today and reports to not sleeping well. Pain management per primary service. Patient does have incentive spirometer at the bedside and encourage the patient to continue using at least 10 times every hour while awake. Encouraged increased activity as tolerated as well. Appropriate home medications resumed. Further recommendations to follow based on the clinical course of the patient. We will continue to follow along with primary service during hospitalization. Thank you for this consultation. The impression and plan of care has been dictated by Chelsie Dalton, nurse practitioner as directed. MD Olga I have performed a history and examination and MDM of this patient, discussed the same with the dictator, and agree with the dictator's assessment and plan as written ,documented as a scribe. Based on total visit time, I have performed more than 50% of the visit. Any additional findings or plans will be noted. Objective - Vital Signs Vital signs: Vital Signs Temp 97.2 F L 03/13/22 05:04 Pulse 61 03/13/22 05:04 Resp 16 03/13/22 05:04 BP 144/76 03/13/22 05:04 Pulse Ox 98 03/13/22 05:04 Intake & Output 03/12/22 03/13/22 03/13/22 18:59 06:59 18:59 Intake Total 2140 290 Output Total 890 360 Balance 1250 -70 Intake: IV 1800 Intake, IV Titration 340 290 Amount Lactated Ringers 1,000 ml 300 240 @ 100 mls/hr IV .Q10H [facility] Rx#:[id number] Lactated Ringers 1,000 ml 40 @ 20 mls/hr IV .Q24H [facility] Rx#:[id number] ceFAZolin 2 gm In Sodium 50 Chloride 0.9% 50 ml @ 100 mls/hr IVPB ONCE ONE Rx# :[id number] Output: Drainage 370 360 Left Lateral Chest 55 40 Left Medial 100 160 Right Chest 215 160 Urine 420 Stool 0 Emesis 0 Estimated Blood Loss 100 Other: Voiding Method Toilet Toilet # Voids 1 # Emeses 0 - Labs CBC & Chem 7: 03/13/22 10:29 03/13/22 10:29
--- NOTE | 2022-03-13 15:00 | P.PN ---
Subjective Progress Note Date: 03/13/22 CHIEF COMPLAINT: Left breast cancer HISTORY OF PRESENT ILLNESS: Patient is status post left modified radical mastectomy, right simple mastectomy and breast reconstruction which was completed by Dr. Westbrook. She is postop day #1. Patient complaining of pain. She had been requiring the IV Dilaudid this morning. She also is complaining of headache. Denies any nausea or vomiting. She is only ambulating a little in the patient with him. She also reports that she is just not emptying her bladder fully. She is afebrile. WBC is 9.9 hemoglobin 12.1 platelets 2:15 sodium 132 potassium 4.1 creatinine 0.67 PHYSICAL EXAM: VITAL SIGNS: Reviewed. GENERAL: Well-developed in no acute distress. HEENT: No sclera icterus. Extraocular movements grossly intact. Moist buccal mucosa. Head is atraumatic, normocephalic. ABDOMEN: Soft. Nondistended. Nontender. NEUROLOGIC: Alert and oriented. Cranial nerves II through XII grossly intact. Breast: Dressing is clean dry and intact. Patient has 3 ABHISHEK drains with sanguinous output left lateral chest 40 mL output left medial chest heart and 60 mL output and right chest 160 ASSESSMENT: 1. Left breast cancer status post left modified radical mastectomy, right simple mastectomy and breast reconstruction which was completed by Dr. Westbrook PLAN: -Continue pain management -Continue monitor ABHISHEK drain output -Bladder scan patient to check for urinary retention -Encouraged patient to ambulate -Anticipate discharge possibly tomorrow -DVT prophylaxis subcu heparin Physician Construction Management Instructor note has been reviewed by physician. Signing provider agrees with the documented findings, assessment, and plan of care. Objective - Vital Signs Vital signs: Vital Signs Temp 98.2 F 03/13/22 12:40 Pulse 77 03/13/22 12:40 Resp 16 03/13/22 12:40 BP 118/73 03/13/22 12:40 Pulse Ox 96 03/13/22 12:40 Intake & Output 03/12/22 03/13/22 03/13/22 18:59 06:59 18:59 Intake Total 2140 290 Output Total 890 360 Balance 1250 -70 Intake: IV 1800 Intake, IV Titration 340 290 Amount Lactated Ringers 1,000 ml 300 240 @ 100 mls/hr IV .Q10H [facility] Rx#:[id number] Lactated Ringers 1,000 ml 40 @ 20 mls/hr IV .Q24H [facility] Rx#:[id number] ceFAZolin 2 gm In Sodium 50 Chloride 0.9% 50 ml @ 100 mls/hr IVPB ONCE ONE Rx# :[id number] Output: Drainage 370 360 Left Lateral Chest 55 40 Left Medial 100 160 Right Chest 215 160 Urine 420 Stool 0 Emesis 0 Estimated Blood Loss 100 Other: Voiding Method Toilet Toilet # Voids 1 # Emeses 0 - Labs CBC & Chem 7: 03/13/22 10:29 03/13/22 10:29 Labs: Abnormal Lab Results - Last 24 Hours (Table) 03/13/22 Range/Units 10:29 Sodium 132 L (137-145) mmol/L Carbon Dioxide 31 H (22-30) mmol/L Glucose 112 H (74-99) mg/dL
[2022-03-13] MEDS: ACETAMINOPHEN TAB 325 MG TAB PO PRN (16:41)
[2022-03-13 21:02] LABS: Appearance,Urine Clear (Clear); Bilirubin,Urine Negative (Negative); Blood,Urine Negative (Negative); Color,Urine Light Yellow; Glucose,Urine (UA) Negative (Negative); Ketones,Urine Negative (Negative); Leukocyte Esterase,Urine Small (Negative); Nitrite,Urine Negative (Negative); Protein,Urine Negative (Negative); Specific Gravity,Urine 1.005 (1.001-1.035); Squamous Epithelial Cell,Urine 1 /hpf (0-4); Urobilinogen,Urine <2.0 mg/dL (<2.0); WBC,Urine 1 /hpf (0-5)
[2022-03-13] MEDS ORDERED: TEMAZEPAM 15 MG CAP PO ONE (22:00)
[2022-03-14 05:31] LABS: Glucose,Whole Blood 104 mg/dL (75-99)
[2022-03-14] MEDS: LEVOTHYROXINE 100 MCG TAB PO SCH (06:27)
[2022-03-14] MEDS: LIOTHYRONINE SODIUM 5 MCG TAB PO SCH (08:23)
[2022-03-14] MEDS: FLUoxetine HCL 20 MG CAP PO SCH (08:23)
[2022-03-14] MEDS: HEPARIN SODIUM,PORCINE/PF 5,000 UNIT/0.5 ML SYRINGE SQ SCH ×2 (08:23→22:32)
[2022-03-14] MEDS: OXYBUTYNIN 10 MG TAB.ER.24 PO SCH (08:23)
[2022-03-14] MEDS: TOBRAMYCIN 0.3% OPHTH DROPS 5 ML BTL RIGHT EYE SCH ×2 (08:25→22:33)
--- NOTE | 2022-03-14 13:47 | XR ---
EXAMINATION TYPE: XR chest 1V portable DATE OF EXAM: 03/14/2022 COMPARISON: NONE HISTORY: Shortness of breath TECHNIQUE: Single frontal view of the chest is obtained. FINDINGS: There is limited inspiration with subsegmental changes at the left lung base. Postsurgical changes overlying bilateral chest. No interstitial edema or pneumothorax. Evidence of cardiomegaly. Heart size normal. Arthropathy of the shoulders. IMPRESSION: Bibasilar atelectasis or early infiltrate correlate clinically. Favor atelectasis from p oor inspiration.
--- NOTE | 2022-03-14 15:07 | PN ---
PROGRESS NOTE DATE OF SERVICE: 03/14/2022 This 52-year-old woman who was admitted after left modified radical mastectomy mass and simple mastectomy on the right is being closely monitored. She complains of pain. No chest pain. No palpitations. No fever. PHYSICAL EXAMINATION: Pulse 67, blood pressure 150/73, respiration 18. CHEST: Clear to auscultation. CARDIOVASCULAR: S1, S2 muffled. ABDOMEN: Soft. LABS: Reviewed. ASSESSMENT: 1. Status post left modified radical mastectomy and simple mastectomy on the right with breast reconstruction. 2. Dryness of the right eye, improved. 3. Pneumonia. 4. History of left breast cancer. 5. History of MRSA. RECOMMENDATIONS AND DISCUSSION: I recommend to continue current medications, continue with the monitoring, symptomatic treatment. Continue incentive spirometry. Pain management. Closely follow with Surgery. Further recommendations to follow. MMLUISL / FAWADN: [id number] /
--- NOTE | 2022-03-14 15:24 | P.PN ---
Subjective Progress Note Date: 03/14/22 CHIEF COMPLAINT: Left breast cancer HISTORY OF PRESENT ILLNESS: Patient is status post left modified radical mastectomy, right simple mastectomy and breast reconstruction which was completed by Dr. Westbrook. She is postop day #2. Patient complains of pain but does report that is controlled. She is tolerating diet. She is afebrile. ABHISHEK drain left lateral chest 15 mL output left medial chest 45 mL output right chest 45 mL output. Output is all sanguinous in color. Patient is sitting in bedside chair. Patient is currently on 3 L of oxygen. Her oxygen saturation did drop down to 86 on room air. Chest x-ray had shown bibasilar atelectasis or early infiltrate. Favor atelectasis from poor inspiration. PHYSICAL EXAM: VITAL SIGNS: Reviewed. GENERAL: Well-developed in no acute distress. HEENT: No sclera icterus. Extraocular movements grossly intact. Moist buccal mucosa. Head is atraumatic, normocephalic. ABDOMEN: Soft. Nondistended. Nontender. NEUROLOGIC: Alert and oriented. Cranial nerves II through XII grossly intact. Breast: Dressing is clean dry and intact. ASSESSMENT: 1. Left breast cancer status post left modified radical mastectomy, right simple mastectomy and breast reconstruction which was completed by Dr. Westbrook 2. Atelectasis PLAN: -Continue pain management -Continue monitor ABHISHEK drain output -Encouraged patient to ambulate in hallway -Encouraged patient to use incentive spirometer -Consult PT to help with ambulating patient -Anticipate discharge possibly tomorrow -DVT prophylaxis subcu heparin Physician Face Painter note has been reviewed by physician. Signing provider agrees with the documented findings, assessment, and plan of care. Objective - Vital Signs Vital signs: Vital Signs Temp 97.4 F L 03/14/22 05:00 Pulse 68 03/14/22 08:31 Resp 18 03/14/22 05:00 BP 152/73 03/14/22 05:00 Pulse Ox 96 03/14/22 08:31 Intake & Output 03/13/22 03/14/22 03/14/22 18:59 06:59 18:59 Intake Total 1200 Output Total 154 105 0 Balance -154 1095 0 Intake: Intake, IV Titration 1200 Amount Lactated Ringers 1,000 ml 1200 @ 100 mls/hr IV .Q10H [facility] Rx#:[id number] Output: Drainage 140 105 Left Lateral Chest 20 15 Left Medial 60 45 Right Chest 60 45 Post Void Residual 14 Stool 0 0 Emesis 0 Other: Voiding Method Toilet Toilet Toilet # Emeses 0 - Labs CBC & Chem 7: 03/13/22 10:29 03/13/22 10:29 Labs: Abnormal Lab Results - Last 24 Hours (Table) 03/13/22 03/14/22 Range/Units 20:38 05:27 POC Glucose (mg/dL) 104 H (75-99) mg/dL Ur Leukocyte Esterase Small H (Negative)
[2022-03-14] MEDS ORDERED: IPRATROPIUM-ALBUTEROL 3 ML NEB INHALATION PRN (15:38)
[2022-03-14] MEDS: IPRATROPIUM-ALBUTEROL 3 ML NEB INHALATION SCH ×2 (16:00→19:17)
[2022-03-14 20:11] VITALS: RESP 16
[2022-03-14] MEDS: ACETAMINOPHEN TAB 325 MG TAB PO PRN (22:32)
[2022-03-15 05:48] VITALS: BP 134/76; TEMP 98.2
[2022-03-15] MEDS: LEVOTHYROXINE 100 MCG TAB PO SCH (06:21)
[2022-03-15] MEDS: OXYBUTYNIN 10 MG TAB.ER.24 PO SCH (07:47)
[2022-03-15] MEDS: FLUoxetine HCL 20 MG CAP PO SCH (07:48)
[2022-03-15] MEDS: LIOTHYRONINE SODIUM 5 MCG TAB PO SCH (07:48)
[2022-03-15] MEDS: HEPARIN SODIUM,PORCINE/PF 5,000 UNIT/0.5 ML SYRINGE SQ SCH (07:48)
[2022-03-15] MEDS: TOBRAMYCIN 0.3% OPHTH DROPS 5 ML BTL RIGHT EYE SCH (07:50)
[2022-03-15] MEDS: IPRATROPIUM-ALBUTEROL 3 ML NEB INHALATION SCH ×2 (08:04→12:02)
[2022-03-15 12:12] VITALS: PULSE 75
--- NOTE | 2022-03-15 12:16 | P.DS ---
Providers Date of admission: 03/12/22 06:34 Expected date of discharge: 03/15/22 Attending physician: Eduardo Moe Consults: 03/12/22 13:56 Consult Physician Routine Consulting Provider: Shweta Dent Consult Reason/Comments: medical management Do you want consulting provider notified?: Yes Primary care physician: Kan Linares MD Hospital Course: Discharge diagnosis 1. Left breast cancer status post left modified radical mastectomy, right simple mastectomy and breast reconstruction which was completed by Dr. Westbrook 2. Atelectasis Hospital course This is a 52-year-old female with left breast cancer status post left modified radical mastectomy, right simple mastectomy and breast reconstruction. Patient reports her pain is controlled. She is tolerating diet. She has been up and ambulating. She is on room air. She denies any difficulty urinating. She is afebrile. Her incision sites are clean dry and intact. She is stable for discharge. Please refer to chart for any further details. Physician Strategic Procurement Manager note has been reviewed by physician. Signing provider agrees with the documented findings, assessment, and plan of care. Patient Condition at Discharge: Stable Plan - Discharge Summary Discharge Rx Participant: Yes New Discharge Prescriptions: New oxyCODONE HCL [OxyIR] 5 mg PO Q6H PRN 3 Days #12 tab PRN Reason: Pain Acetaminophen Tab [Tylenol Tab] 650 mg PO Q4H PRN #30 tablet PRN Reason: Pain Continue FLUoxetine HCL [PROzac] 40 mg PO QAM Oxybutynin Chloride [Oxybutynin Chloride ER] 10 mg PO DAILY Levothyroxine Sodium [Synthroid] 100 mcg PO QAM Liothyronine Sodium [Cytomel] 5 mcg PO QAM Discharge Medication List FLUoxetine HCL [PROzac] 40 mg PO QAM 10/16/20 [History] Levothyroxine Sodium [Synthroid] 100 mcg PO QAM 06/21/21 [History] Oxybutynin Chloride [Oxybutynin Chloride ER] 10 mg PO DAILY 06/21/21 [History] Liothyronine Sodium [Cytomel] 5 mcg PO QAM 01/07/22 [History] Acetaminophen Tab [Tylenol Tab] 650 mg PO Q4H PRN #30 tablet 03/14/22 [Rx] oxyCODONE HCL [OxyIR] 5 mg PO Q6H PRN 3 Days #12 tab 03/14/22 [Rx] Follow up Appointment(s)/Referral(s): Eduardo Moe MD [STAFF PHYSICIAN] - 1 Week Activity/Diet/Wound Care/Special Instructions: Keep a log of ABHISHEK drain output and bring with you to your follow-up appointment Milk/strip drains 2-3 times a day No driving while taking OxyIR No lifting over 10 pounds You may shower. No soaking or tub baths for 2 weeks Very light activity until you are reevaluated at your follow up appointment with your surgeon Discharge Disposition: HOME SELF-CARE
--- NOTE | 2022-03-15 14:43 | P.PN ---
Subjective Progress Note Date: 03/15/22 52-year-old female admitted under surgical services and is status post left modified radical mastectomy along with right simple mastectomy and breast reconstruction with general surgery and Dr. Westbrook and is being closely monitored. On exam today patient denies any further eye irritation although just feels generalized fatigue and did not sleep very well last night. Patient tolerating diet and encouraged oral intake as patient reports to not eating much. Patient denies any chest pain or shortness of breath. Patient is afebrile. Pain management per primary service. Patient is continued on IV hydration at 100 an hour and repeat labs have been ordered and pending at this time and will follow-up with labs. Objective - Vital Signs Vital signs: Vital Signs Temp 98.2 F 03/15/22 04:00 Pulse 75 03/15/22 12:12 Resp 16 03/15/22 08:00 BP 134/76 03/15/22 04:00 Pulse Ox 95 03/15/22 04:00 Intake & Output 03/14/22 03/15/22 03/15/22 18:59 06:59 18:59 Intake Total 590 Output Total 90 100 Balance -90 590 -100 Intake: Oral 590 Output: Drainage 90 100 Left Lateral Chest 10 20 Left Medial 40 40 Right Chest 40 40 Stool 0 0 Other: Voiding Method Toilet Toilet Toilet # Voids 4 - Exam GENERAL: The patient is alert and oriented x4, Well developed, well nourished. HEENT: Pupils are round and equally reacting to light. EOMI. no scleral icterus. No conjunctival pallor. Normocephalic, atraumatic. No pharyngeal erythema. No thyromegaly. CARDIOVASCULAR: S1 and S2 muffled, postsurgical chest PULMONARY: diminished breath sounds bilaterally with no wheezing or rhonchi noted. ABDOMEN: soft. Nontender on exam. non-distended, normoactive bowel sounds. No palpable organomegaly. MUSCULOSKELETAL: No joint swelling or deformity. EXTREMITIES: No cyanosis, clubbing, or pedal edema. NEUROLOGICAL: Gross neurological examination did not reveal any focal deficits. SKIN: No rashes. - Labs CBC & Chem 7: 03/13/22 10:29 03/13/22 10:29 Assessment and Plan Assessment: Status post left modified radical mastectomy and simple mastectomy on the right with breast reconstruction Dryness of the right eye, improved History of pneumonia History of left breast cancer History of MRSA history of bariatric surgery GI prophylaxis DVT prophylaxis Full code Plan: Recommend to continue with current medications and management per surgical services. Patient was maintained on IV saline at 100 and hour and is tolerating diet and oral intake and will discontinue. Patient is mildly hyponatremic at 132 and encouraged oral intake. Patient feels generalized fatigue today and reports to not sleeping well. Pain management per primary service. Patient does have incentive spirometer at the bedside and encourage the patient to continue using at least 10 times every hour while awake. Encouraged increased activity as tolerated as well. Appropriate home medications resumed. Further recommendations to follow based on the clinical course of the patient. We will continue to follow along with primary service during hospitalization. Thank you for this consultation.
== END 2022-03-15 14:17 | disposition home or self-care (01) | DRG 580 ==
LOC: 2ORMAIN 06:34 → 5NMEDONC 12:57
PROVIDERS: ADMIT Surgery; ATTEND Surgery
PROC: 07T60ZZ Resection of Left Axillary Lymphatic, Open Approach (ICD-10-PCS; principal; 2022-03-12 07:40)
PROC: 0HTV0ZZ Resection of Bilateral Breast, Open Approach (ICD-10-PCS; principal; 2022-03-12 07:40)
PROC: 0HHV0NZ Insertion of Tissue Expander into Bilateral Breast, Open Approach (ICD-10-PCS; 2022-03-12 07:40)
PROC: 0KXK0Z6 Transfer Right Abdomen Muscle, Transverse Rectus Abdominis Myocutaneous Flap, Open Approach (ICD-10-PCS; 2022-03-12 07:40)
PROC: 0KXL0Z6 Transfer Left Abdomen Muscle, Transverse Rectus Abdominis Myocutaneous Flap, Open Approach (ICD-10-PCS; 2022-03-12 07:40)
DX: C50.912 Malignant neoplasm of unspecified site of left female breast (principal); J98.11 Atelectasis; E87.1 Hypo-osmolality and hyponatremia; Z40.01 Encounter for prophylactic removal of breast; E03.9 Hypothyroidism, unspecified; H04.129 Dry eye syndrome of unspecified lacrimal gland; F32.A Depression, unspecified; F41.9 Anxiety disorder, unspecified; R51.9 Headache, unspecified; I83.90 Asymptomatic varicose veins of unspecified lower extremity; Z79.890 Hormone replacement therapy; Z79.899 Other long term (current) drug therapy; Z87.01 Personal history of pneumonia (recurrent); Z86.16 Personal history of COVID-19; Z86.14 Personal history of Methicillin resistant Staphylococcus aureus infection; Z87.448 Personal history of other diseases of urinary system; Z90.49 Acquired absence of other specified parts of digestive tract; Z98.84 Bariatric surgery status; Z87.19 Personal history of other diseases of the digestive system; Z98.891 History of uterine scar from previous surgery; Z98.890 Other specified postprocedural states; Z80.3 Family history of malignant neoplasm of breast; Z82.49 Family history of ischemic heart disease and other diseases of the circulatory system; Z83.3 Family history of diabetes mellitus
CPT/HCPCS: 71045; 80048; 81001; 84484; 85025; 85379; 88307; 88309; 88341; 88342; 93005; 94640

== ENCOUNTER → 2023-05-02 | Outpatient (CLI) | payer BC ==
--- NOTE | 2023-05-02 12:09 | BD ---
EXAMINATION TYPE: Axial Bone Density DATE OF EXAM: 05/02/2023 CLINICAL HISTORY: 53 years old Female. ICD-10 CODE: C50.412 Height: Weight: FRAX RISK QUESTIONS: History of Fracture in Adulthood: no Secondary Osteoporosis: no RISK FACTORS HISTORY OF: Family History of Osteoporosis: grandma paternal Active: yes Diet low in dairy products/other sources of calcium: no Postmenopausal woman: yes Lost more than 2 inches in height since high school: no Frequent falls: no Poor Health: no MEDICATIONS: Thyroid Medications: yes Which medication: Levothyroxine How Lon+ years Additional Medications: yes bladder meds , Arimidex, anxiety depression, vit d , calcium, Additional History: yes breast cancer 3-22 EXAM MEASUREMENTS: Bone mineral densitometry was performed using the [employer] System. Bone mineral density as measured about the Lumbar spine is: ----- L1-L4(G/cm2): 1.432 T Score Values are as follows: ----- L1: 1.9 ----- L2: 1.2 ----- L3: 2.1 ----- L4: 2.8 ----- L1-L4: 2.1 Z Score Values are as follows: ----- L1: 1.4 ----- L2: 0.7 ----- L3: 1.6 ----- L4: 2.2 ----- L1-L4: 1.6 Bone mineral density baseline Bone mineral density about the R hip (g/cm2): 1.082 Bone mineral density about the L hip (g/cm2): 1.171 T Score values are as follows: -----R Neck: 0.0 -----L Neck: 0.1 -----R Total: 0.6 -----L Total: 1.3 Z Score values are as follows: -----R Neck: 0.1 -----L Neck: 0.3 -----R Total: 0.3 -----L Total: 1.0 Bone mineral density baseline FRAX%s: The graph provided illustrates a 4.0% chance for a major osteoporotic fx and a 0.1% chance fo r the hips probability for fx in 10 years time. IMPRESSION: Normal (Values between +1 and -1 indicate normal bone mass). Consider repeating this study in 5 year s or sooner if there is some new clinical indication. NOTE: T-SCORE=SD OF THE YOUNG ADULT MEAN.
== END | disposition home or self-care (01) ==
LOC: RADBDWWP 08:23
PROVIDERS: ATTEND Internal Medicine
DX: C50.412 Malignant neoplasm of upper-outer quadrant of left female breast (principal); Z85.3 Personal history of malignant neoplasm of breast
CPT/HCPCS: 77080

== ENCOUNTER → 2023-06-16 | Outpatient (CLI) | payer BC ==
[2023-06-16 13:14] VITALS: BP 122/81; PULSE 86; TEMP 98; BMI 39.7
--- NOTE | 2023-06-24 15:48 | P.HPBAR ---
Bariatric H&P - History & Physicial H&P Date: 06/16/23 History & Physicial: Visit/CC: discuss conversion to sleeve Patient initial contact: Initial weight: 113.115 kg Initial weight in pounds: 249.38 Height: 5 ft 5 in Initial BMI: 41.5 Last weight: Current weight: 108.409 kg Current weight in pounds: 239.00 Current BMI: 39.7 [place] body weight (based on NIH guidelines): 56.699 kg Excess body weight loss: 8.3% The patient is a 53 year-old F who presents for Bariatric Assessment. patient presents today for Follow-up. She is requesting to convert to sleeve gastrectomy. Patient is in issues with chronic GERD and dysphagia with her Lap-Band. She has gained 18 pounds her last visit because her Lap-Band cannot be adjusted. Whenever her band adjusted she develops dysphagia and GERD Past Medical History Past Medical History: Cancer, Pneumonia, Thyroid Disorder Additional Past Medical History / Comment(s): Hx. of left breast cancer, no chemo or radiation. Hx Covid November 2020. Hx of "MRSA Pneumonia" at [facility] a couple years ago. Cyst on kidney. Varicose veins. History of Any Multi-Drug Resistant Organisms: MRSA Year Discovered:: 2019 MDRO Source:: lungs Past Surgical History: Bariatric Surgery, Breast Surgery, Section, Cholecystectomy Additional Past Surgical History / Comment(s): Section X 4, Lap Band 2011. Bilat. Breast mastectomy Past Anesthesia/Blood Transfusion Reactions: No Reported Reaction, Motion Sickness Past Psychological History: Anxiety, Depression Smoking Status: Never smoker Past Alcohol Use History: Occasional Past Drug Use History: None Reported - Past Family History Father Family Medical History: Cancer Mother Family Medical History: Cancer, Coronary Artery Disease (CAD) Brother(s) Family Medical History: Diabetes Mellitus Sister(s) Family Medical History: Diabetes Mellitus Daughter(s) History Unknown: Yes Surgical - Exam Vital Signs Temp Pulse BP 98 F 86 122/81 06/16/23 13:08 06/16/23 13:08 06/16/23 13:08 - General well developed, well nourished, no distress - Eyes PERRL - ENT normal pinna, normal nares - Abdomen Abdomen: soft, non tender Bariatric Assessment & Plan Plan: . Dysphagia related to Lap-Band. Patient will be converted to sleeve gastrectomy when she obtains insurance authorization. She will follow-up in 4 weeks. Bariatric Checklist Checklist: Plan: Checklist: EGD: 1. Hiatal hernia: 2. H. Pylori: HgbA1c: Vitamin D: Smoking: Primary care physician referral: Dr. Linares Psychiatry clearance: Cardiology clearance: Sleep study: Diet journal: VTE risk score: VTE risk level: Rehab needs at discharge:
== END ==
LOC: BARWHC3 12:38
PROVIDERS: ATTEND Surgery
DX: E66.01 Morbid (severe) obesity due to excess calories (principal); Z46.51 Encounter for fitting and adjustment of gastric lap band; Z98.84 Bariatric surgery status; Z68.41 Body mass index [BMI] 40.0-44.9, adult
CPT/HCPCS: 99211

== ENCOUNTER → 2023-08-18 | Outpatient (CLI) | payer BC ==
[2023-08-18 09:17] VITALS: BP 116/80; PULSE 67; TEMP 97.8; BMI 39.2
--- NOTE | 2023-08-25 14:45 | P.HPBAR ---
Bariatric H&P - History & Physicial H&P Date: 08/25/23 History & Physicial: Visit/CC: EGD F/U Patient initial contact: Initial weight: 113.115 kg Initial weight in pounds: 249.38 Height: 5 ft 5 in Initial BMI: 41.5 Last weight: Current weight: 107.048 kg Current weight in pounds: 236.00 Current BMI: 39.2 [place] body weight (based on NIH guidelines): 56.699 kg Excess body weight loss: 10.7% The patient is a 53 year-old F who presents for Bariatric Assessment. patient presents today for bariatric follow-up. She has had some complaints of dysphagia. Past Medical History Past Medical History: Cancer, Pneumonia, Thyroid Disorder Additional Past Medical History / Comment(s): Hx. of left breast cancer, no chemo or radiation. Hx Covid November 2020. Hx of "MRSA Pneumonia" at [facility] 2019 Cyst on kidney. Varicose veins. History of Any Multi-Drug Resistant Organisms: MRSA Year Discovered:: 2019 MDRO Source:: lungs Past Surgical History: Bariatric Surgery, Breast Surgery, Section, Cholecystectomy Additional Past Surgical History / Comment(s): Section X 4, Lap Band 2011. Bilat. Breast mastectomy Past Anesthesia/Blood Transfusion Reactions: No Reported Reaction, Motion Sickness Additional Past Anesthesia/Blood Transfusion Reaction / Comm: no blood transfusion Past Psychological History: Anxiety, Depression Smoking Status: Never smoker Past Alcohol Use History: Occasional Past Drug Use History: None Reported - Past Family History Father Family Medical History: Cancer Additional Family Medical History / Comment(s): prostate lung Mother Family Medical History: Cancer, Coronary Artery Disease (CAD) Additional Family Medical History / Comment(s): breast Brother(s) Family Medical History: Diabetes Mellitus Sister(s) Family Medical History: Diabetes Mellitus Daughter(s) History Unknown: Yes Surgical - Exam Vital Signs Temp Pulse BP 97.8 F 67 116/80 08/18/23 09:07 08/18/23 09:07 08/18/23 09:07 - General well developed, well nourished, no distress - Abdomen Abdomen: soft, non tender Bariatric Assessment & Plan Plan: The patient dysphagia intermittent. She underwent recent EGD last month. The patient will be observed. She will follow-up in 4 weeks. Bariatric Checklist Checklist: Plan: Checklist: EGD: 1. Hiatal hernia: 2. H. Pylori: HgbA1c: Vitamin D: Smoking: Primary care physician referral: Dr. Linares Psychiatry clearance: Cardiology clearance: Sleep study: Diet journal: VTE risk score: VTE risk level: Rehab needs at discharge:
== END ==
LOC: BARWHC3 08:46
PROVIDERS: ATTEND Surgery
DX: R13.10 Dysphagia, unspecified (principal); E66.01 Morbid (severe) obesity due to excess calories; E07.9 Disorder of thyroid, unspecified; Z98.84 Bariatric surgery status; Z85.3 Personal history of malignant neoplasm of breast; Z86.16 Personal history of COVID-19; Z68.39 Body mass index [BMI] 39.0-39.9, adult; Z79.890 Hormone replacement therapy
CPT/HCPCS: 99211

== ENCOUNTER → 2023-09-01 | Outpatient (CLI) | payer BC ==
[2023-09-01 14:48] VITALS: BMI 39.6
== END ==
LOC: BARWHC3 12:43
PROVIDERS: ATTEND Surgery
DX: E66.01 Morbid (severe) obesity due to excess calories (principal); Z71.3 Dietary counseling and surveillance; Z68.39 Body mass index [BMI] 39.0-39.9, adult
CPT/HCPCS: 97804; 99211